=== PATIENT | female | born 1945 | race Caucasian/White ===

== ENCOUNTER 2024-05-13 22:05 | Inpatient (IN) ==
[2024-05-13] MEDS: MoRPHine SULFATE 4 MG/ML 1 ML CARP\\VIAL IV STA (22:22)
[2024-05-13] MEDS: ONDANSETRON INJ 2 MG/ML 2 ML VIAL IV STA (22:26)
--- NOTE | 2024-05-13 22:54 | Emergency Department Note ---
Impression & Plan Closed intertrochanteric fracture of right hip, Fall ED Provider Note NAME: MELVIN CAICEDO AGE: 78 SEX: F : 1945 ARRIVES VIA: Ambulance INFORMANT: Patient, ED PROVIDER(S): Yung Blandon DO CHIEF COMPLAINT: Hip pain HPI: The patient is a 78-year-old female who presented to the emergency department for an evaluation of hip pain. The patient had a fall at her home. She was seen in our facility recently and diagnosed with urinary tract infection. The patient denies having any neck pain or headache. There is no reported loss of conscious. She did receive fentanyl prior to arrival. She has a history of a stroke. ROS: See above HPI for pertinent positives & negatives. A total of 10 systems reviewed and were otherwise negative. PAST MEDICAL HISTORY: See Below PAST SURGICAL HISTORY: See Below FAMILY HISTORY: See Below SOCIAL HISTORY: See Below HOME MEDICATIONS: See Below ALLERGIES: See Below VITALS: See Below PHYSICAL EXAMINATION: GENERAL: The patient awake and alert. She appears very anxious and uncomfortable. EYES: The conjunctivae are clear. The pupils are round and reactive. EARS, NOSE, MOUTH AND THROAT: The nose is without any evidence of any deformity. NECK: The neck is nontender and supple. RESPIRATORY: Normal respiratory effort is noted there is no evidence of wheezing rhonchi or rales CARDIOVASCULAR: Regular rate and rhythm noted there no murmurs rubs or gallops normal S1 normal S2. GASTROINTESTINAL: The abdomen is soft. Abdomen is nontender. MUSCULOSKELETAL/EXTREMITIES: The right lower extremity is shortened and internally rotated. The patient resists any range of motion testing. SKIN: There is no obvious evidence of any rash. There are no petechiae, pallor or cyanosis noted. NEUROLOGIC: Patient is awake alert and oriented to person place but not time. Speech was clear. MEDICAL DECISION MAKING: The patient is a 78-year-old female who presented to the emergency department for an evaluation after a fall. The patient's history and physical exam appear to be consistent with a right hip fracture. X-rays appear to be consistent with an intertrochanteric right hip fracture. Chest x-ray showed no acute process but it was a imaging done lying flat. The patient was being treated for urinary tract infection and was seen in our facility last week. I discussed the patient's laboratory and radiographic studies with her. I discussed her condition with the on-call [facility] hospitalist. They have agreed to evaluate the patient in the emergency department for further management and disposition. Triage Nursing notes reviewed. Prior medical records reviewed Vital Signs: reviewed and remarkable for no significant abnormalities Differential diagnosis: Fracture, dislocation, contusion, intra-abdominal, pneumothorax, intrathoracic, intracranial, neurologic, compartment syndrome, rhabdomyolysis, as well as other pathologies. ER treatment provided: See below Diagnostics interpreted by me: ECG: EKG was obtained to the emergency department. My interpretation is normal sinus rhythm at 77 bpm. LVH was suggested by voltage criteria with nonspecific ST and T wave abnormalities. This was compared to a tracing from May 06, 2024. No changes were noted. Cardiac Monitoring: An order was placed for continuous cardiac monitoring. The monitor shows a rate of 75 bpm with sinus rhythm. Laboratory studies: As stated above and show below. Imaging studies: See below. Radiographic imaging was reviewed by myself Consultation(s): I discussed this case with Dr. Sarah who is on-call for the [place] [facility]. Past Med/Surg History Problem List (Updated 05/13/24 @ 23:58 by Yung Blandon DO) Fall (Acute) Closed intertrochanteric fracture of right hip (Acute) Acute UTI (Acute) Coccygeal contusion (Acute) Double vision Cerebrovascular disease, unspecified Blow-out fracture of orbital floor MARVA on CPAP History of breast cancer Adjustment disorder with depressed mood Hemiparesis affecting right side as late effect of cerebrovascular accident Age-related osteoporosis without current pathological fracture History of melanoma Expressive aphasia Chronic kidney disease, stage 3b Gastroesophageal reflux Hemorrhoids, external without complications Mixed dyslipidemia Type 2 diabetes mellitus with stage 3b chronic kidney disease, 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 Acquired hypothyroidism Type 2 diabetes mellitus Medical History History of chemotherapy Hx of radiation therapy Surgical History H/O partial mastectomy Nm breast sentinel node inj or (Left) 4 nodes positive S/P breast biopsy H/O left mastectomy Status post breast reduction Family History Mother Leukemia Thyroid disease Father Heart disease Brother Leukemia Brother Melanoma Grandfather COPD (chronic obstructive pulmonary disease) Social History Smoking Status: Never smoker Preferred Language: Polish marital status: How many Children do You have: 2 Feels Safe at Home: Yes Allergies Allergies Allergy/AdvReac Type Severity Reaction Status Date / Time No Known Allergies Allergy Verified 06/26/23 15:37 Home Meds Home Medications Medication Instructions Recorded Confirmed CPAP Machine 06/26/23 06/26/23 acetaminophen 500 mg tablet 1,000 mg PO Q8H PRN 06/26/23 06/26/23 aspirin 81 mg tablet 81 mg PO DAILY 06/26/23 06/26/23 atorvastatin 80 mg tablet 80 mg PO DAILY 06/26/23 06/26/23 blood sugar diagnostic (OneTouch 06/26/23 06/26/23 Verio test strips) bupropion HCl 150 mg 24 hr tablet, 150 mg PO QAM 06/26/23 06/26/23 extended release calcium carbonate (Antacid 215 mg PO TID 06/26/23 06/26/23 (calcium carbonate)) cholecalciferol (vitamin D3) 125 125 mcg PO DAILY 06/26/23 06/26/23 mcg (5,000 unit) capsule conjugated estrogens 0.625 mg/gram 0.625 mg vaginal DAILY 06/26/23 06/26/23 vaginal cream (Premarin) cyanocobalamin (vitamin B-12) 1,000 mcg sublingual DAILY 06/26/23 06/26/23 1,000 mcg sublingual tablet denosumab 60 mg/mL subcutaneous mg subcut 06/26/23 06/26/23 syringe (Prolia) dulaglutide 4.5 mg/0.5 mL 4.5 mg subcut 06/26/23 06/26/23 subcutaneous pen injector (Trulicity) empagliflozin 25 mg tablet 25 mg PO DAILY 06/26/23 06/26/23 ezetimibe 10 mg tablet 10 mg PO DAILY 06/26/23 06/26/23 famotidine 20 mg tablet 20 mg PO DAILY 06/26/23 06/26/23 folic acid 400 mcg tablet 0.4 mg PO DAILY 06/26/23 06/26/23 insulin aspart U-100 100 unit/mL 35 unit subcut TID 06/26/23 06/26/23 (3 mL) subcutaneous pen (Novolog FlexPen U-100 Insulin aspart) insulin needles (disposable) 30 X 06/26/23 06/26/23 3/4" levothyroxine 75 mcg capsule 75 mcg PO DAILY 06/26/23 06/26/23 lisinopril 10 mg tablet 10 mg PO DAILY 06/26/23 06/26/23 metformin 500 mg tablet 1,000 mg PO DAILY 06/26/23 06/26/23 prednisone 20 mg tablet 20 mg PO DAILY 06/26/23 06/26/23 sertraline 100 mg tablet 100 mg PO DAILY 06/26/23 06/26/23 sertraline 50 mg tablet 50 mg PO DAILY 06/26/23 06/26/23 Previous Rx's Medication Instructions Recorded cephalexin 500 mg capsule 500 mg PO BID #10 caps 05/06/24 naproxen 500 mg tablet 500 mg PO BID PRN pain #20 tabs 05/06/24 Results & Data (ED) Vital Signs Vital Signs - 24 hr 05/13/24 22:14 05/13/24 22:28 05/13/24 22:28 Temperature 36.4 C L Temperature Source Oral Pulse Rate 87 75 Pulse Rate [Apical] 75 Respiratory Rate 18 18 Respiratory Effort / Characteristics Non-Labored Spontaneous Non-Labored Spontaneous Blood Pressure 94/65 L Blood Pressure [Right Arm] 94/65 L Blood Pressure Mean 74 Blood Pressure Mean [Right Arm] 74 Blood Pressure Position Lying Blood Pressure Position [Right Arm] Lying Pulse Oximetry 96 96 Oxygen Delivery Method Room Air Room Air Sepsis Recent Fever Within 48 Hours No Sepsis New/Unexplained Change in Mental Status No Sepsis Action Taken by Nursing No Action Required 05/13/24 22:28 Temperature Temperature Source Pulse Rate 75 Pulse Rate [Apical] Respiratory Rate 18 Respiratory Effort / Characteristics Blood Pressure Blood Pressure [Right Arm] Blood Pressure Mean Blood Pressure Mean [Right Arm] Blood Pressure Position Blood Pressure Position [Right Arm] Pulse Oximetry 96 Oxygen Delivery Method Room Air Sepsis Recent Fever Within 48 Hours Sepsis New/Unexplained Change in Mental Status Sepsis Action Taken by Retirement Medications Current Medication List: was personally reviewed by me Laboratory Data Attestation: I reviewed the patient's lab results. 05/13/24 22:33 05/13/24 22:33 Lab Results 05/13/24 05/13/24 Range/Units 22:33 23:30 WBC 12.88 H (4.8-10.8) K/ul RBC 4.48 (4.20-5.40) M/uL Hgb 12.7 (12.0-16.0) g/dl Hct 39.7 (37.0-47.0) % MCV 88.6 (80.0-100.0) fL MCH 28.3 (25.0-34.0) pg MCHC 32.0 (32.0-36.0) g/dL RDW Std Deviation 51.3 H (36.4-46.3) fL RDW Coeff of Mery 15.9 H (11.5-14.5) % Plt Count 382 (130-400) K/uL MPV 10.2 (9.4-12.4) fL Immature Gran % (Auto) 0.5 % Neut % (Auto) 78.8 % Lymph % (Auto) 11.9 % Gilliam % (Auto) 6.9 % Eos % (Auto) 1.4 % Baso % (Auto) 0.5 % Neut # (Auto) 10.15 H (1.40-6.50) K/uL Lymph # (Auto) 1.53 (1.20-3.40) K/uL Gilliam # (Auto) 0.89 H (0.11-0.59) K/uL Eos # (Auto) 0.18 (0.00-0.50) K/uL Baso # (Auto) 0.06 (0.00-0.20) K/uL Immature Gran # (Auto) 0.07 (0.01-0.20) K/uL PT 10.9 (9.0-12.0) Seconds INR 1.0 (0.9-1.1) APTT 26 (21-31) Seconds PTT Ratio 1.0 Sodium 139 (136-145) mmol/L Potassium 4.1 (3.5-5.1) mmol/L Chloride 105 (98-107) mmol/L Carbon Dioxide 24 (21-32) mmol/L Anion Gap 10 (3-11) BUN 24 H (6-23) mg/dl Creatinine 1.24 H (0.6-1.2) mg/dl Est Cr Clr Drug Dosing 38.2 ml/min eGFR 44.82 BUN/Creatinine Ratio 19.4 (10-20) Glucose 217 H (70-99(Fasting)) mg/dl Calcium 9.4 (8.6-10.3) mg/dl Total Bilirubin 0.3 (0.2-1.0) mg/dl AST 30 (13-39) U/L ALT 30 (7-52) U/L Alkaline Phosphatase 60 (34-104) U/L Troponin I High Sens 7.4 (0-14) pg/ml Total Protein 6.5 (6.0-8.3) gm/dl Albumin 3.9 (3.4-5.0) gm/dl Globulin 2.6 (2.5-4.0) gm/dl Albumin/Globulin Ratio 1.5 (0.9-2) Lipase 34 (11-82) U/L Urine Color Yellow Urine Appearance Clear (Clear) Urine pH 5.5 (4.5-7.5) Ur Specific [place] 1.034 H (1.000-1.030) Urine Protein Negative (Negative) Urine Glucose (UA) 3+ H (Negative) Urine Ketones Trace H (Negative) Urine Blood Negative (Negative) Urine Nitrite Negative (Negative) Urine Bilirubin Negative (Negative) Urine Urobilinogen Negative (Negative) Ur Leukocyte Esterase Negative (Negative) Administered Medications Discontinued Medications Sodium Chloride (Nss) 500 mls @ 999 mls/hr IV .Q31M ONE Stop: 05/13/24 23:32 Last Admin: 05/13/24 23:19 Dose: 999 mls/hr Documented By: OMAR Morphine Sulfate (Morphine Sulfate 4 Mg/Ml 1 Ml Carp\\Vial) 4 mg IV NOW STA Stop: 05/13/24 22:17 Last Admin: 05/13/24 22:22 Dose: 4 mg Documented By: JENNIFER Ondansetron HCl (Ondansetron Inj 2 Mg/Ml 2 Ml Vial) 4 mg IV NOW STA Stop: 05/13/24 22:17 Last Admin: 05/13/24 22:26 Dose: 4 mg Documented By: JENNIFER Imaging Data Attestation: I personally reviewed and interpreted this imaging study as follows: My Impression: 1 view chest x-ray was obtained in the emergency department. My interpretation is no free air, no definite infiltrate, final report pending. X-ray of the right hip and pelvis as well as right femur were obtained. My interpretation is no definite pelvic fracture, there was an intertrochanteric right hip fracture noted, final report pending. Discharge Plan Visit Data Chief Complaint: Leg Injury/Pain Stated Complaint: R LEG PAIN, FALL ED Provider: Yung Blandon Discharge Problem: Closed intertrochanteric fracture of right hip, Fall Patient Disposition: Being Evaluated by Hospitalist Forms Stand Alone Forms: My [facility] Prescriptions Prescriptions: No Action atorvastatin 80 mg tablet 80 mg PO DAILY levothyroxine 75 mcg capsule 75 mcg PO DAILY ezetimibe 10 mg tablet 10 mg PO DAILY lisinopril 10 mg tablet 10 mg PO DAILY metformin 500 mg tablet 1,000 mg PO DAILY bupropion HCl 150 mg tablet extended release 24 hr 150 mg PO QAM prednisone 20 mg tablet 20 mg PO DAILY famotidine 20 mg tablet 20 mg PO DAILY cholecalciferol (vitamin D3) 125 mcg (5,000 unit) capsule 125 mcg PO DAILY (DME) OneTouch Verio test strips Strip See Rx Instructions .ROUTE Rx Instructions: As directed Antacid (calcium carbonate) 215 mg calcium (500 mg) tablet,chewable 215 mg PO TID (DME) insulin needles (disposable) 30 X 3/4 " needle See Rx Instructions .ROUTE Rx Instructions: As directed Premarin 0.625 mg/gram cream 0.625 mg vaginal DAILY Rx Instructions: off 5 days; repeat cycle Prolia 60 mg/mL syringe subcut Rx Instructions: Inject 60 mg under the skin once. Inject 1 milliliter by subcutaneous route every 6 months in the upper arm, upper thigh or abdomen folic acid 400 mcg tablet 0.4 mg PO DAILY aspirin 81 mg tablet 81 mg PO DAILY cyanocobalamin (vitamin B-12) 1,000 mcg tablet, sublingual 1,000 mcg sublingual DAILY sertraline 50 mg tablet 50 mg PO DAILY sertraline 100 mg tablet 100 mg PO DAILY Trulicity 4.5 mg/0.5 mL pen injector 4.5 mg subcut Rx Instructions: Inject 4.5 mg under the skin once a week (DME) CPAP Machine Misc See Rx Instructions .ROUTE Rx Instructions: As directed insulin aspart U-100 [Novolog FlexPen U-100 Insulin] 100 unit/mL (3 mL) insulin pen 35 unit subcut TID Rx Instructions: INJECT 35 UNITS UNDER THE SKIN WITH BREAKFAST, LUNCH AND DINNER, OR 25 UNITS WITH LOW CARB MEALS, LIKE SALAD empagliflozin 25 mg tablet 25 mg PO DAILY acetaminophen 500 mg tablet 1,000 mg PO Q8H PRN cephalexin 500 mg capsule 500 mg PO BID Qty: 10 0RF naproxen 500 mg tablet 500 mg PO BID PRN (Reason: pain) Qty: 20 0RF Referrals Referrals: Dixon Corbin DO [Primary Care Provider] - Discharge Problem: Closed intertrochanteric fracture of right hip Qualifiers: Encounter type: initial encounter Fracture alignment: displaced Qualified Code(s): S72.141A - Displaced intertrochanteric fracture of right femur, initial encounter for closed fracture Fall Qualifiers: Encounter type: initial encounter Qualified Code(s): W19.XXXA - Unspecified fall, initial encounter
[2024-05-13 23:00] LABS: Basophils # (auto) 0.06 K/uL (0.00-0.20); Basophils % (auto) 0.5 %; Eosinophils # (auto) 0.18 K/uL (0.00-0.50); Eosinophils % (auto) 1.4 %; Hematocrit (blood only) 39.7 % (37.0-47.0); Hemoglobin 12.7 g/dl (12.0-16.0); Immature Granulocytes # (auto) 0.07 K/uL (0.01-0.20); Immature Granulocytes % (auto) 0.5 %; Lymphocytes # (auto) 1.53 K/uL (1.20-3.40); Lymphocytes % (auto) 11.9 %; Mean Corpuscular Hemoglobin 28.3 pg (25.0-34.0); Mean Corpuscular Volume 88.6 fL (80.0-100.0); Mean Platelet Volume 10.2 fL (9.4-12.4); Monocytes # (auto) 0.89 K/uL (0.11-0.59); Monocytes % (auto) 6.9 %; Neutrophils # (auto) 10.15 K/uL (1.40-6.50); Neutrophils % (auto) 78.8 %; Platelet Count 382 K/uL (130-400); RDW Coefficient of Variation 15.9 % (11.5-14.5); RDW Standard Deviation 51.3 fL (36.4-46.3); Red Blood Count 4.48 M/uL (4.20-5.40); White Blood Count 12.88 K/ul (4.8-10.8)
[2024-05-13 23:04] LABS: Albumin Globulin Ratio 1.5 (0.9-2); Albumin Level 3.9 gm/dl (3.4-5.0); BUN Creatinine Ratio 19.4 (10-20); Bilirubin,Total 0.3 mg/dl (0.2-1.0); Calcium 9.4 mg/dl (8.6-10.3); Creatinine Clr Calc Pharmacy 38.2 ml/min; Globulin 2.6 gm/dl (2.5-4.0); Potassium 4.1 mmol/L (3.5-5.1); Total Protein 6.5 gm/dl (6.0-8.3)
[2024-05-13 23:10] LABS: Troponin I High Sensitivity 7.4 pg/ml (0-14)
[2024-05-13] MEDS: SODIUM CHLORIDE 0.9% 500 ML IV ONE (23:19)
[2024-05-13 23:30] LABS: Partial Thromboplastin Time 26 Seconds (21-31); Prothrombin Time 10.9 Seconds (9.0-12.0)
[2024-05-13 23:43] LABS: Appearance Urine Clear (Clear); Bilirubin Urine Negative (Negative); Blood Urine Negative (Negative); Color Urine Yellow; Glucose Urine UA 3+ (Negative); Ketones Urine Trace (Negative); Leukocyte Esterase Urine Negative (Negative); Nitrite Urine Negative (Negative); Protein Urine Negative (Negative); Specific Gravity Urine 1.034 (1.000-1.030); Urobilinogen Urine Negative (Negative); pH Urine 5.5 (4.5-7.5)
--- NOTE | 2024-05-13 23:52 | History & Physical Report ---
Date of Service May 13, 2024 Assessment & Plan (1) Hypotension: Plan: Episodic hypotension Possible autonomic neuropathy History DM 2 insulin requiring, suboptimal control as of recent hemoglobin A1c of 9.3 last January 2024 Recent outpatient TTE from March 2024 with EF of 55%, mild MR/TR Traumatic right hip fracture Underlying osteoporosis Ambulatory dysfunction hx CVA/expressive aphasia PVD status post stent hyperlipidemia, on statin Rx MARVA on CPAP left breast cancer status post chemoradiation, in remission hx melanoma as per records hypothyroidism, euthyroid as of today's TSH Medical telemetry IV albumin given chronic congestion on CXR Initiate midodrine if with persistent hypotension Hold home BP meds for now. Orthopedics consult Re: Traumatic right hip fracture N.p.o. until patient seen by orthopedics in anticipation of procedure Revised Cardiac Risk Index (RCRI): 1. High-risk type of surgery (examples include vascular and any open intraperitoneal or intrathoracic procedures). No 2. History of ischemic heart disease (history of myocardial infarction or positive exercise test, current compliant of chest pain considered to be secondary to myocardial ischemia, use of nitrate therapy, or ECG with pathological Q waves; do not count prior coronary revascularization procedure unless one of the other criteria for ischemic heart disease is present). No 3. History of heart failure. No 4. History of cerebrovascular disease. Yes 5. Diabetes mellitus requiring treatment with insulin. Yes 6. Preoperative serum creatinine >2.0. No Pt has revised cardiac index score of 0 points. (Class III Risk.) 3=10.1 % 30-day risk of , CO, or cardiac arrest. Moderate to high risk for cardiac complications if surgery recommended by Orthopedics and patient/family agreeable to attendant procedural benefits and risks.. Continue home aspirin, statin for secondary stroke prevention Basal bolus insulin adjusted for n.p.o. status, ISS BG goal 1 10-1 40 DVT prophylaxis. SCDs re: possible procedure Full code Patient requesting updates providers. Nayla Tushar Clark, contact #[phone]. Text document was generated using [employer] voice recognition software. It may contain grammatical or spelling errors. Kindly contact undersigned for clarification of any documentation item in question. History of Present Illness Chief Complaint: Fall, right hip pain Primary Care Provider: Dixon Corbin DO History obtained from patient, family, and records. Medical history significant for valvular heart disease (mild MR, TR, TTE 2023), CVA, expressive aphasia, PVD status post stent, hypertension, hyperlipidemia, MARVA on CPAP, left breast cancer status post chemoradiation, melanoma as per records, DM 2 insulin requiring, hypothyroidism, mood disorder, osteoporosis Recent ER visit last week for sacral pain following fall at home after sliding off the bed.. Patient evaluated at the ER. Coccygeal contusion on exam. Hypotension noted at the ER. Keflex Rx prescribed for possible UTI. Increased pain on ambulation since discharge from the hospital. Patient started on Lidoderm patch by PCP on follow-up visit today. Patient had a fall at her kitchen tonight, no head trauma or LOC. Patient denies chest pain, SOB. Right leg noted to be abnormal as per . Physician neighbor summoned to patient's home. EMS subsequently called. SBP 90s upon arrival at the ER. 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 Allergies Allergy/AdvReac Type Severity Reaction Status Date / Time No Known Allergies Allergy Verified 06/26/23 15:37 Home Medications Medication Instructions Recorded Confirmed Type CPAP Machine 06/26/23 05/14/24 History aspirin 81 mg tablet 81 mg PO DAILY 06/26/23 05/14/24 History atorvastatin 80 mg tablet 80 mg PO DAILY 06/26/23 05/14/24 History blood sugar diagnostic (OneTouch 06/26/23 05/14/24 History Verio test strips) bupropion HCl 150 mg 24 hr tablet, 150 mg PO QAM 06/26/23 05/14/24 History extended release cholecalciferol (vitamin D3) 125 125 mcg PO DAILY 06/26/23 05/14/24 History mcg (5,000 unit) capsule cyanocobalamin (vitamin B-12) 1,000 mcg sublingual DAILY 06/26/23 05/14/24 History 1,000 mcg sublingual tablet denosumab 60 mg/mL subcutaneous 60 mg subcut 06/26/23 06/26/23 History syringe (Prolia) empagliflozin 25 mg tablet 25 mg PO DAILY 06/26/23 05/14/24 History ezetimibe 10 mg tablet 10 mg PO DAILY 06/26/23 05/14/24 History famotidine 20 mg tablet 20 mg PO DAILY 06/26/23 05/14/24 History insulin aspart U-100 100 unit/mL 35 unit subcut TID 06/26/23 05/14/24 History (3 mL) subcutaneous pen (Novolog FlexPen U-100 Insulin aspart) insulin needles (disposable) 30 X 06/26/23 05/14/24 History 3/4" levothyroxine 75 mcg capsule 100 mcg PO DAILY 06/26/23 05/14/24 History lisinopril 10 mg tablet 10 mg PO DAILY 06/26/23 05/14/24 History sertraline 100 mg tablet 100 mg PO DAILY 06/26/23 05/14/24 History sertraline 50 mg tablet 50 mg PO DAILY 06/26/23 05/14/24 History Premarin 0.625 mg vaginal BID 05/14/24 05/14/24 History calcium carbonate 750 mg PO BID 05/14/24 05/14/24 History insulin aspart U-100 100 unit/mL subcut 05/14/24 History (3 mL) subcutaneous pen (Novolog FlexPen U-100 Insulin aspart) insulin glargine 100 unit/mL (3 56 unit subcut DAILY 05/14/24 05/14/24 History mL) subcutaneous pen (Lantus Solostar U-100 Insulin) lidocaine 4 % topical patch 1 patch topical Q12H pain 05/14/24 05/14/24 History (Aspercreme (lidocaine)) metformin 500 mg tablet,extended 500 mg PO BID 05/14/24 05/14/24 History release 24 hr tirzepatide 2.5 mg/0.5 mL 5 mg subcut WK 05/14/24 05/14/24 History subcutaneous pen injector (Mounjaro) Past Med/Surg History Problem List Hypotension Fall (Acute) Closed intertrochanteric fracture of right hip (Acute) Acute UTI (Acute) Coccygeal contusion (Acute) Double vision Cerebrovascular disease, unspecified Blow-out fracture of orbital floor MARVA on CPAP History of breast cancer Adjustment disorder with depressed mood Hemiparesis affecting right side as late effect of cerebrovascular accident Age-related osteoporosis without current pathological fracture History of melanoma Expressive aphasia Chronic kidney disease, stage 3b Gastroesophageal reflux Hemorrhoids, external without complications Mixed dyslipidemia Type 2 diabetes mellitus with stage 3b chronic kidney disease, 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 Acquired hypothyroidism Type 2 diabetes mellitus Medical History History of chemotherapy Hx of radiation therapy Surgical History H/O partial mastectomy Nm breast sentinel node inj or (Left) 4 nodes positive S/P breast biopsy H/O left mastectomy Status post breast reduction Family History Mother Leukemia Thyroid disease Father Heart disease Brother Leukemia Brother Melanoma Grandfather COPD (chronic obstructive pulmonary disease) Social History Smoking Status: Never smoker Hx Alcohol Use: Yes Alcohol type: wine Hx Substance Use: No Preferred Language: Serbian Place Change Roof Bolter Required: No Beliefs That Will Affect Care: None marital status: Current Living Situation: Spouse Current Living Situation Comment: lives at home with How many Children do You have: 2 Other Information That Helps Us Care for You: No Feels Safe at Home: Yes Safety Concerns: Feels Safe At This Time Assistive Devices: CPAP and Walker Review of Systems Review of Systems: As per HPI, all other systems reviewed and negative Physical Exam Physical Exam: GENERAL: uncomfortable, dysarthric, pleasant, no respiratory distress SKIN: Normal color, warm HEENT: [place] palpebral conjunctivae, no ptosis, dry buccal mucosa NECK : Supple, no tenderness CHEST : CTA, no tenderness HEART : RRR, no obvious murmurs ABDOMEN: Some distention, nontender EXTREMITIES : Right hip tenderness, no other conspicuous deformities noted NEUROLOGIC : Coherent, no facial asymmetry, chronic dysarthria, chronic right hemiparesis, gait and stance not assessed Results & Data Results & Data Vital Signs (Past 12 Hours) Vital Signs Temp Pulse Pulse Resp BP BP Pulse Ox 05/13/24 22:28 75 18 96 05/13/24 22:28 36.4 C L 75 18 94/65 L 96 05/13/24 22:28 75 18 94/65 L 96 05/13/24 22:14 87 O2 Del Method 05/13/24 22:28 Room Air 05/13/24 22:28 Room Air 05/13/24 22:28 Room Air 05/13/24 22:14 Laboratory Results Laboratory Results WBC 12.88 K/ul (4.8-10.8) H 05/13/24 22:33 RBC 4.48 M/uL (4.20-5.40) 05/13/24 22:33 Hgb 12.7 g/dl (12.0-16.0) 05/13/24 22:33 Hct 39.7 % (37.0-47.0) 05/13/24 22:33 MCV 88.6 fL (80.0-100.0) 05/13/24 22: MCH 28.3 pg (25.0-34.0) 05/13/24 22:33 MCHC 32.0 g/dL (32.0-36.0) 05/13/24 22:33 RDW Std Deviation 51.3 fL (36.4-46.3) H 05/13/24 22:33 RDW Coeff of Mery 15.9 % (11.5-14.5) H 05/13/24 22:33 Plt Count 382 K/uL (130-400) 05/13/24 22:33 MPV 10.2 fL (9.4-12.4) 05/13/24 22:33 Immature Gran % (Auto) 0.5 % 05/13/24 22:33 Neut % (Auto) 78.8 % 05/13/24 22:33 Lymph % (Auto) 11.9 % 05/13/24 22:33 [place] % (Auto) 6.9 % 05/13/24 22:33 Eos % (Auto) 1.4 % 05/13/24 22:33 Baso % (Auto) 0.5 % 05/13/24 22:33 Neut # (Auto) 10.15 K/uL (1.40-6.50) H 05/13/24 22:33 Lymph # (Auto) 1.53 K/uL (1.20-3.40) 05/13/24 22:33 [place] # (Auto) 0.89 K/uL (0.11-0.59) H 05/13/24 22:33 Eos # (Auto) 0.18 K/uL (0.00-0.50) 05/13/24 22:33 Baso # (Auto) 0.06 K/uL (0.00-0.20) 05/13/24 22:33 Immature Gran # (Auto) 0.07 K/uL (0.01-0.20) 05/13/24 22:33 PT 10.9 Seconds (9.0-12.0) 05/13/24 22:33 INR 1.0 (0.9-1.1) 05/13/24 22:33 APTT 26 Seconds (21-31) 05/13/24 22:33 PTT Ratio 1.0 05/13/24 22:33 Sodium 139 mmol/L (136-145) 05/13/24 22:33 Potassium 4.1 mmol/L (3.5-5.1) 05/13/24 22:33 Chloride 105 mmol/L (98-107) 05/13/24 22:33 Carbon Dioxide 24 mmol/L (21-32) 05/13/24 22:33 Anion Gap 10 (3-11) 05/13/24 22:33 BUN 24 mg/dl (6-23) H 05/13/24 22:33 Creatinine 1.24 mg/dl (0.6-1.2) H 05/13/24 22:33 Est Cr Clr Drug Dosing 38.2 ml/min 05/13/24 22:33 eGFR 44.82 05/13/24 22:33 BUN/Creatinine Ratio 19.4 (10-20) 05/13/24 22:33 Glucose 217 mg/dl (70-99(Fasting)) H 05/13/24 22:33 Calcium 9.4 mg/dl (8.6-10.3) 05/13/24 22:33 Total Bilirubin 0.3 mg/dl (0.2-1.0) 05/13/24 22:33 AST 30 U/L (13-39) 05/13/24 22:33 ALT 30 U/L (7-52) 05/13/24 22:33 Alkaline Phosphatase 60 U/L (34-104) 05/13/24 22:33 Troponin I High Sens 7.4 pg/ml (0-14) 05/13/24 22:33 Total Protein 6.5 gm/dl (6.0-8.3) 05/13/24 22:33 Albumin 3.9 gm/dl (3.4-5.0) 05/13/24 22:33 Globulin 2.6 gm/dl (2.5-4.0) 05/13/24 22:33 Albumin/Globulin Ratio 1.5 (0.9-2) 05/13/24 22:33 Lipase 34 U/L (11-82) 05/13/24 22:33 Urine Color Yellow 05/13/24 23:30 Urine Appearance Clear (Clear) 05/13/24 23:30 Urine pH 5.5 (4.5-7.5) 05/13/24 23:30 Ur Specific [place] 1.034 (1.000-1.030) H 05/13/24 23:30 Urine Protein Negative (Negative) 05/13/24 23:30 Urine Glucose (UA) 3+ (Negative) H 05/13/24 23:30 Urine Ketones Trace (Negative) H 05/13/24 23:30 Urine Blood Negative (Negative) 05/13/24 23:30 Urine Nitrite Negative (Negative) 05/13/24 23:30 Urine Bilirubin Negative (Negative) 05/13/24 23:30 Urine Urobilinogen Negative (Negative) 05/13/24 23:30 Ur Leukocyte Esterase Negative (Negative) 05/13/24 23:30 Pelvic x-ray: A nondisplaced right intertrochanteric fracture is suspected. The need for CT exam for confirmation to be determined clinically. . Right femur x-ray: Osteopenia. No acute fracture or dislocation identified. Diagnostic Findings Chest x-ray as per my interpretation elevated right hemidiaphragm, minimal congestion EKG as per my interpretation : Rate 75, NSR, LAD, LAFB, LVH, septal infarct, no ischemia
[2024-05-14] MEDS ORDERED: bisacodyL 10 MG SUPP PR PRN (00:27)
[2024-05-14] MEDS ORDERED: NALOXONE HCL 0.4 MG/1 ML VIAL/CARP IV PRN (00:27)
[2024-05-14] MEDS ORDERED: PROMETHAZINE 6.25 MG/50.25 ML BAG IV PRN (00:29)
[2024-05-14 00:51] LABS: Base Excess VBG -0.5 mEq/L; HCO3 VBG 24 mmol/L; Oxygen Saturation VBG 91.8 %; PCO2 VBG 39 mmHg (38-50); PO2 VBG 61 mmHg
--- NOTE | 2024-05-14 01:18 | XRay Report ---
Exam(s): XR CXR 1 VIEW EXAM: XR Chest, 1 View CLINICAL HISTORY: Reason for exam: Chest pain, nonspecific. TECHNIQUE: Frontal view of the chest. COMPARISON: X-ray chest: 05/06/2024. FINDINGS: Lungs: Redemonstrates a skinfold laterally over the upper/mid left chest. No consolidation. Pleural space: No pleural effusion. No definite pneumothorax. Elevated right hemidiaphragm with reduced right lung volume. Heart: No cardiomegaly. Mildly prominent upper lobes pulmonary vessels. Mediastinum: Normal mediastinal contour. Prominent left hilar soft tissue density. Bones/joints: Osteopenia. No acute fracture. Other findings: Left subclavian endovascular stent. Upper abdominal metallic small surgical clips.. IMPRESSION: Likely mild chronic pulmonary vascular congestion. Advise clinical correlation. No consolidation. Again noted a prominent left hilar soft tissue opacity. CT chest would be contributory. . Electronically signed by: Evelyn Bello MD, AAKASHR 05/14/24 01:17 AM
--- NOTE | 2024-05-14 01:21 | XRay Report ---
Exam(s): XR RIGHT FEMUR, 2 views EXAM: XR Right Femur, 2 Views CLINICAL HISTORY: Reason for exam: femur. TECHNIQUE: Frontal and lateral views of the right femur. COMPARISON: None. FINDINGS: Bones/joints: Diffuse osseous demineralization. No acute fracture. No dislocation. Soft tissues: Unremarkable. Extensive calcified arterial atherosclerosis. IMPRESSION: Osteopenia. No acute fracture or dislocation identified. . Electronically signed by: Evelyn Bello MD, AAKASHR 05/14/24 01:20 AM
--- NOTE | 2024-05-14 01:26 | XRay Report ---
Exam(s): XR PELVIS, 1-2 views EXAM: XR Pelvis, 1 or 2 Views CLINICAL HISTORY: Reason for exam: fall. TECHNIQUE: Frontal view of the pelvis. COMPARISON: None. FINDINGS: Bones/joints: Osteopenia. Likely a nondisplaced intertrochanteric fracture. No dislocation. Left hip hemiarthroplasty. Mild right hip osteoarthrosis. Soft tissues: Unremarkable. Diffuse arterial calcified atherosclerosis. Other findings: Ventral abdominal wall hernia repair multiple surgical clips. IMPRESSION: Osteopenia. A nondisplaced right intertrochanteric fracture is suspected. The need for CT exam for confirmation to be determined clinically. . Electronically signed by: Evelyn Bello MD, AAKASHR 05/14/24 01:25 AM
[2024-05-14] MEDS ORDERED: DEXTROSE 50% 50 ML SYRINGE IV PRN ×3 (01:27→18:25)
[2024-05-14] MEDS ORDERED: GLUCOSE 40% GEL 15 GM TUBE PO PRN ×3 (01:27→18:25)
[2024-05-14] MEDS ORDERED: GLUCAGON FOR INJ 1 MG VIAL SQ PRN ×3 (01:27→18:25)
[2024-05-14] MEDS ORDERED: CARBOHYDRATES FOR HYPOGLYCEMIA PO PRN ×3 (01:27→18:25)
[2024-05-14] MEDS ORDERED: GLUCOSE 10 TAB/TUBE PO PRN ×3 (01:27→18:25)
[2024-05-14] MEDS: SODIUM CHLORIDE 0.9% 1,000 ML IV ONE (01:30)
[2024-05-14] MEDS: ACETAMINOPHEN 1,000 MG/100 ML VIAL IV STA (01:48)
[2024-05-14] MEDS: INSULIN ASPART PER UNIT CHARGE SC SCH ×2 (01:57→05:40)
[2024-05-14] MEDS: LANTUS PER UNIT CHARGE SQ SCH (01:57)
[2024-05-14] MEDS: ALBUMIN 25% 25 GM/100 ML VIAL IV ONE (02:04)
[2024-05-14 05:02] LABS: BUN Creatinine Ratio 18.2 (10-20); Calcium 8.8 mg/dl (8.6-10.3); Creatinine Clr Calc Pharmacy 38.2 ml/min
[2024-05-14] MEDS: ALBUMIN 25% 25 GM/100 ML VIAL IV SCH (05:02)
[2024-05-14] MEDS: oxyCODONE HCL IR 5 MG TAB (IMMEDIATE RELEASE) PO PRN ×2 (05:13→12:20)
[2024-05-14 05:17] LABS: Thyroid Stimulating Hormone 3.643 uIu/ml (0.300-4.500)
[2024-05-14] MEDS: LEVOTHYROXINE SODIUM 100 MCG TABLET PO SCH (05:42)
[2024-05-14] MEDS ORDERED: Nursing to Pharmacy Communication SCH (06:00)
[2024-05-14] MEDS: oxyCODONE HCL IR 5 MG TAB (IMMEDIATE RELEASE) PO STA (06:44)
--- NOTE | 2024-05-14 08:02 | Anesthesiology Consultation ---
Date of Service May 14, 2024 Assessment & Plan Chart Review Chart Review: Acceptable Risk for Surgery and Patient NOT seen in Pre Admission Testing History Surgery Operation Date: 05/14/24 15:40 Proposed Procedures p Right Long Troch Nail - Zac Cooley MD Height/Weight Height: 5 ft 5 in Weight: 69.7 kg Allergies Allergy/AdvReac Type Severity Reaction Status Date / Time No Known Allergies Allergy Verified 06/26/23 15:37 Medications Home Medications Medication Instructions Recorded Confirmed Last Taken CPAP Machine 06/26/23 05/14/24 Unknown aspirin 81 mg tablet 81 mg PO DAILY 06/26/23 05/14/24 05/13/24 atorvastatin 80 mg tablet 80 mg PO DAILY 06/26/23 05/14/24 05/13/24 blood sugar diagnostic (OneTouch 06/26/23 05/14/24 Unknown Verio test strips) bupropion HCl 150 mg 24 hr tablet, 150 mg PO QAM 06/26/23 05/14/24 05/13/24 extended release cholecalciferol (vitamin D3) 125 125 mcg PO DAILY 06/26/23 05/14/24 05/13/24 mcg (5,000 unit) capsule cyanocobalamin (vitamin B-12) 1,000 mcg sublingual DAILY 06/26/23 05/14/24 05/13/24 1,000 mcg sublingual tablet denosumab 60 mg/mL subcutaneous 60 mg subcut 06/26/23 06/26/23 Unknown syringe (Prolia) empagliflozin 25 mg tablet 25 mg PO DAILY 06/26/23 05/14/24 05/13/24 ezetimibe 10 mg tablet 10 mg PO DAILY 06/26/23 05/14/24 05/13/24 famotidine 20 mg tablet 20 mg PO DAILY 06/26/23 05/14/24 05/13/24 insulin aspart U-100 100 unit/mL 35 unit subcut TID 06/26/23 05/14/24 05/13/24 (3 mL) subcutaneous pen (Novolog FlexPen U-100 Insulin aspart) insulin needles (disposable) 30 X 06/26/23 05/14/24 Unknown 3/4" levothyroxine 75 mcg capsule 100 mcg PO DAILY 06/26/23 05/14/24 05/13/24 lisinopril 10 mg tablet 10 mg PO DAILY 06/26/23 05/14/24 05/13/24 sertraline 100 mg tablet 100 mg PO DAILY 06/26/23 05/14/24 05/13/24 sertraline 50 mg tablet 50 mg PO DAILY 06/26/23 05/14/24 05/13/24 Premarin 0.625 mg vaginal BID 05/14/24 05/14/24 Unknown calcium carbonate 750 mg PO BID 05/14/24 05/14/24 05/13/24 insulin aspart U-100 100 unit/mL subcut 05/14/24 05/13/24 (3 mL) subcutaneous pen (Novolog FlexPen U-100 Insulin aspart) insulin glargine 100 unit/mL (3 56 unit subcut DAILY 05/14/24 05/14/24 05/13/24 mL) subcutaneous pen (Lantus Solostar U-100 Insulin) lidocaine 4 % topical patch 1 patch topical Q12H pain 05/14/24 05/14/24 05/13/24 (Aspercreme (lidocaine)) metformin 500 mg tablet,extended 500 mg PO BID 05/14/24 05/14/24 05/13/24 release 24 hr tirzepatide 2.5 mg/0.5 mL 5 mg subcut WK 05/14/24 05/14/24 Unknown subcutaneous pen injector (Arianne) Active Medications Generic Name Dose Route Start Last Admin Trade Name Claudioq PRN Reason Stop Dose Admin Albumin Human 25 gm in 100 mls @ 50 mls/hr 05/14/24 04:45 05/14/24 07:02 Albumin 25% IV 05/17/24 04:44 Infused Q8H LOIDA Infusion Insulin Aspart 0 units 05/14/24 06:00 05/14/24 05:40 Insulin Aspart Per Unit Charge SC 06/13/24 05:59 1 units Q6 LOIDA Administration Insulin Glargine 5 units 05/14/24 01:20 05/14/24 01:57 Lantus Per Unit Charge SQ 06/13/24 01:19 5 units HS LOIDA Administration Levothyroxine Sodium 100 mcg 05/14/24 06:30 05/14/24 05:42 Levothyroxine Sodium 100 Mcg Tablet PO 06/13/24 06:29 100 mcg DAILYBB LOIDA Administration Past Medical History Medical History History of chemotherapy Hx of radiation therapy Past Family History Family History Mother Leukemia Thyroid disease Father Heart disease Brother Leukemia Brother Melanoma Grandfather COPD (chronic obstructive pulmonary disease) Past Surgical History Surgical History H/O partial mastectomy Nm breast sentinel node inj or (Left) 4 nodes positive S/P breast biopsy H/O left mastectomy Status post breast reduction Social History Smoking Status: Never smoker Hx Alcohol Use: Yes Alcohol type: wine Alcohol Intake Frequency Comment: pt states has not drank in months. Hx Substance Use: No substance use type: does not use Physical Exam Vital Signs Last Vital Signs Temp 37.2 C 05/14/24 04:25 Pulse 77 05/14/24 07:00 Resp 20 05/14/24 04:25 BP 91/54 L 05/14/24 04:25 Pulse Ox 96 05/14/24 04:25 O2 Del Method CPAP 05/14/24 04:25 O2 Flow Rate 2 05/14/24 02:50 Testing Laboratory Results 05/13/24 22:33 05/14/24 04:37 PT 10.9 Seconds (9.0-12.0) 05/13/24 22:33 INR 1.0 (0.9-1.1) 05/13/24 22:33 APTT 26 Seconds (21-31) 05/13/24 22:33 Urine Color Yellow 05/13/24 23:30 Urine Appearance Clear (Clear) 05/13/24 23:30 Urine pH 5.5 (4.5-7.5) 05/13/24 23:30 Ur Specific [place] 1.034 (1.000-1.030) H 05/13/24 23:30 Urine Protein Negative (Negative) 05/13/24 23:30 Urine Glucose (UA) 3+ (Negative) H 05/13/24 23:30 Urine Ketones Trace (Negative) H 05/13/24 23:30 Urine Nitrite Negative (Negative) 05/13/24 23:30 Ur Leukocyte Esterase Negative (Negative) 05/13/24 23:30 Blood Type A Positive 05/14/24 00:41 Antibody Screen NEGATIVE 05/14/24 00:41 05/14/24 05/14/24 05:01 01:27 POC Glucose 147 H 166 H
[2024-05-14] MEDS: CYANOCOBALAMIN (B-12) 500 MCG TABLET PO SCH (09:06)
[2024-05-14] MEDS: ATORVASTATIN 40 MG TAB PO SCH (09:06)
[2024-05-14] MEDS: CHOLECALCIFEROL 125 MCG (5,000 UNITS) TAB PO SCH (09:07)
[2024-05-14] MEDS: FAMOTIDINE 20 MG TAB PO SCH (09:07)
[2024-05-14] MEDS: CALCIUM CARBONATE 500 MG CHEWABLE TAB PO SCH (09:07)
[2024-05-14] MEDS: SERTRALINE HCL 50 MG TABLET PO SCH (09:07)
[2024-05-14] MEDS: ASPIRIN 81 MG ECTAB PO SCH (09:07)
[2024-05-14] MEDS: buPROPion XL 150 MG TABCR PO SCH (09:07)
[2024-05-14] MEDS: EZETIMIBE 10 MG TAB PO SCH (09:08)
[2024-05-14] MEDS: SERTRALINE HCL 100 MG TABLET PO SCH (09:08)
[2024-05-14] MEDS: LIDOCAINE 5% 1 PATCH TD SCH (09:08)
--- NOTE | 2024-05-14 09:40 | Hospitalist Progress Note ---
Date of Service May 14, 2024 Assessment & Plan (1) Hypotension: Plan Pt is a 78yoF with PMhx significant for valvular heart disease (mild MR, TR, TTE 2023), CVA, expressive aphasia, PVD status post stent, hypertension, hyperlipidemia, MARVA on CPAP, left breast cancer status post chemoradiation, melanoma as per records, DM 2 insulin requiring, hypothyroidism, mood disorder, osteoporosis presenting with concern for trauma after a fall at home. Right Intertrochanteric Fracture Traumatic right hip fracture Underlying osteoporosis Ambulatory dysfunction XRAY of the pelvis noting Right Intertrochanteric Fracture Orthopedics consult, anticipating repair on Pain control as needed PT/OT postop Hypotension Periodic before sugery Per her BP is chronically on the low end Continue home midodrine Continue other home meds as ordered DVT prophylaxis: SCDs re: possible procedure preop Full code Dispo: per PT/OT recs once medically stable, anticipating discharge to rehab Admission and Anticipated Discharge Date Admission Date: May 13, 2024 Subjective Pt was seen pre-op in the AM with her at bedside. Hx of stroke, AAOx2. States having occasional pain, right leg hurts Review of Systems Review of Systems: All systems reviewed & are unremarkable except as noted in Subjective Physical Exam Physical Exam: General: Alert Psych: Appropriate mood and affect Neuro: unable to move right leg HEENT: NC/AT CV: RRR Resp: Breath sounds clear bilaterally, no increased effort of breathing Abdomen: Soft, nontender Extremities:unable to move right leg Results & Data Results & Data Vital Signs (Past 12 Hours) Vital Signs Temp Pulse Pulse Pulse Resp BP BP 05/14/24 08:18 36.8 C 72 20 94/63 L 05/14/24 07:00 77 05/14/24 04:25 37.2 C 82 20 91/54 L 05/14/24 02:50 84 17 05/14/24 01:27 81 05/14/24 01:10 05/14/24 01:10 36.4 C L 76 18 122/75 05/14/24 00:06 83 20 92/58 L 05/13/24 22:28 75 18 05/13/24 22:28 36.4 C L 75 18 94/65 L 05/13/24 22:28 75 18 94/65 L 05/13/24 22:14 87 Pulse Ox O2 Del Method O2 Flow Rate 05/14/24 08:18 98 Room Air 05/14/24 07:00 05/14/24 04:25 96 CPAP 05/14/24 02:50 92 2 05/14/24 01:27 05/14/24 01:10 CPAP 05/14/24 01:10 94 Room Air 05/14/24 00:06 93 Room Air 05/13/24 22:28 96 Room Air 05/13/24 22:28 96 Room Air 05/13/24 22:28 96 Room Air 05/13/24 22:14 Diagnostic Findings Chest X-Ray 05/13/24 22:16 Exam(s): XR CXR 1 VIEW EXAM: XR Chest, 1 View CLINICAL HISTORY: Reason for exam: Chest pain, nonspecific. TECHNIQUE: Frontal view of the chest. COMPARISON: X-ray chest: 05/06/2024. FINDINGS: Lungs: Redemonstrates a skinfold laterally over the upper/mid left chest. No consolidation. Pleural space: No pleural effusion. No definite pneumothorax. Elevated right hemidiaphragm with reduced right lung volume. Heart: No cardiomegaly. Mildly prominent upper lobes pulmonary vessels. Mediastinum: Normal mediastinal contour. Prominent left hilar soft tissue density. Bones/joints: Osteopenia. No acute fracture. Other findings: Left subclavian endovascular stent. Upper abdominal metallic small surgical clips.. IMPRESSION: Likely mild chronic pulmonary vascular congestion. Advise clinical correlation. No consolidation. Again noted a prominent left hilar soft tissue opacity. CT chest would be contributory. . Electronically signed by: Evelyn Bello MD, FLETCHER 05/14/24 01:17 AM Femur X-Ray 05/13/24 22:16 Exam(s): XR RIGHT FEMUR, 2 views EXAM: XR Right Femur, 2 Views CLINICAL HISTORY: Reason for exam: femur. TECHNIQUE: Frontal and lateral views of the right femur. COMPARISON: None. FINDINGS: Bones/joints: Diffuse osseous demineralization. No acute fracture. No dislocation. Soft tissues: Unremarkable. Extensive calcified arterial atherosclerosis. IMPRESSION: Osteopenia. No acute fracture or dislocation identified. . Electronically signed by: Evelyn Bello MD, FLETCHER 05/14/24 01:20 AM Pelvis X-Ray 05/13/24 22:16 Exam(s): XR PELVIS, 1-2 views EXAM: XR Pelvis, 1 or 2 Views CLINICAL HISTORY: Reason for exam: fall. TECHNIQUE: Frontal view of the pelvis. COMPARISON: None. FINDINGS: Bones/joints: Osteopenia. Likely a nondisplaced intertrochanteric fracture. No dislocation. Left hip hemiarthroplasty. Mild right hip osteoarthrosis. Soft tissues: Unremarkable. Diffuse arterial calcified atherosclerosis. Other findings: Ventral abdominal wall hernia repair multiple surgical clips. IMPRESSION: Osteopenia. A nondisplaced right intertrochanteric fracture is suspected. The need for CT exam for confirmation to be determined clinically. . Electronically signed by: Evelyn Bello MD, DABR 05/14/24 01:25 AM
[2024-05-14 09:43] LABS: Basophils # (auto) 0.06 K/uL (0.00-0.20); Basophils % (auto) 0.5 %; Eosinophils # (auto) 0.15 K/uL (0.00-0.50); Eosinophils % (auto) 1.1 %; Hematocrit (blood only) 34.6 % (37.0-47.0); Hemoglobin 10.9 g/dl (12.0-16.0); Immature Granulocytes # (auto) 0.04 K/uL (0.01-0.20); Immature Granulocytes % (auto) 0.3 %; Lymphocytes # (auto) 1.68 K/uL (1.20-3.40); Lymphocytes % (auto) 12.7 %; Mean Corpuscular Hemoglobin 28.2 pg (25.0-34.0); Mean Corpuscular Hgb Conc 31.5 g/dL (32.0-36.0); Mean Corpuscular Volume 89.4 fL (80.0-100.0); Mean Platelet Volume 10.5 fL (9.4-12.4); Monocytes # (auto) 1.08 K/uL (0.11-0.59); Monocytes % (auto) 8.2 %; Neutrophils # (auto) 10.19 K/uL (1.40-6.50); Neutrophils % (auto) 77.2 %; Platelet Count 339 K/uL (130-400); RDW Standard Deviation 51.7 fL (36.4-46.3); Red Blood Count 3.87 M/uL (4.20-5.40)
[2024-05-14] MEDS: MoRPHine SULFATE 2 MG/ML CARP IV PRN (10:02)
[2024-05-14] MEDS: MIDODRINE HCL 2.5 MG TAB PO SCH (10:40)
--- NOTE | 2024-05-14 10:50 | Orthopedic Consultation ---
Date of Service May 14, 2024 Assessment & Plan (1) Closed intertrochanteric fracture of right hip: Her and her were educated on this injury and treatment for it. We recommend trochanteric nailing and they would like to proceed with that. She is npo. Plan for surgery this afternoon. History of Present Illness Reason for Consultation: . Requesting Physician: . Attending Physician: Ita Schroeder MD .Summer is a 78 year old patient that fell last night at home and injured her right hip. She was admitted to the hospitalist service and is npo. She denies any hip pain prior to the fall. She does have a h/o left hip fx taken care of in [place] where they used to live. She has a h/o cva and hemiparesis on the right side, uses assistive devices for ambulation. Allergies Allergy/AdvReac Type Severity Reaction Status Date / Time No Known Allergies Allergy Verified 06/26/23 15:37 Home Medications Medication Instructions Recorded Confirmed Type CPAP Machine 06/26/23 05/14/24 History aspirin 81 mg tablet 81 mg PO DAILY 06/26/23 05/14/24 History atorvastatin 80 mg tablet 80 mg PO DAILY 06/26/23 05/14/24 History blood sugar diagnostic (OneTouch 06/26/23 05/14/24 History Verio test strips) bupropion HCl 150 mg 24 hr tablet, 150 mg PO QAM 06/26/23 05/14/24 History extended release cholecalciferol (vitamin D3) 125 125 mcg PO DAILY 06/26/23 05/14/24 History mcg (5,000 unit) capsule cyanocobalamin (vitamin B-12) 1,000 mcg sublingual DAILY 06/26/23 05/14/24 History 1,000 mcg sublingual tablet denosumab 60 mg/mL subcutaneous 60 mg subcut 06/26/23 06/26/23 History syringe (Prolia) empagliflozin 25 mg tablet 25 mg PO DAILY 06/26/23 05/14/24 History ezetimibe 10 mg tablet 10 mg PO DAILY 06/26/23 05/14/24 History famotidine 20 mg tablet 20 mg PO DAILY 06/26/23 05/14/24 History insulin aspart U-100 100 unit/mL 35 unit subcut TID 06/26/23 05/14/24 History (3 mL) subcutaneous pen (Novolog FlexPen U-100 Insulin aspart) insulin needles (disposable) 30 X 06/26/23 05/14/24 History 3/4" levothyroxine 75 mcg capsule 100 mcg PO DAILY 06/26/23 05/14/24 History lisinopril 10 mg tablet 10 mg PO DAILY 06/26/23 05/14/24 History sertraline 100 mg tablet 100 mg PO DAILY 06/26/23 05/14/24 History sertraline 50 mg tablet 50 mg PO DAILY 06/26/23 05/14/24 History Premarin 0.625 mg vaginal BID 05/14/24 05/14/24 History calcium carbonate 750 mg PO BID 05/14/24 05/14/24 History insulin aspart U-100 100 unit/mL subcut 05/14/24 History (3 mL) subcutaneous pen (Novolog FlexPen U-100 Insulin aspart) insulin glargine 100 unit/mL (3 56 unit subcut DAILY 05/14/24 05/14/24 History mL) subcutaneous pen (Lantus Solostar U-100 Insulin) lidocaine 4 % topical patch 1 patch topical Q12H pain 05/14/24 05/14/24 History (Aspercreme (lidocaine)) metformin 500 mg tablet,extended 500 mg PO BID 05/14/24 05/14/24 History release 24 hr tirzepatide 2.5 mg/0.5 mL 5 mg subcut WK 05/14/24 05/14/24 History subcutaneous pen injector (Mounjaro) Past Med/Surg History Problem List Hypotension Fall (Acute) Closed intertrochanteric fracture of right hip (Acute) Acute UTI (Acute) Coccygeal contusion (Acute) Double vision Cerebrovascular disease, unspecified Blow-out fracture of orbital floor MARVA on CPAP History of breast cancer Adjustment disorder with depressed mood Hemiparesis affecting right side as late effect of cerebrovascular accident Age-related osteoporosis without current pathological fracture History of melanoma Expressive aphasia Chronic kidney disease, stage 3b Gastroesophageal reflux Hemorrhoids, external without complications Mixed dyslipidemia Type 2 diabetes mellitus with stage 3b chronic kidney disease, 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 Acquired hypothyroidism Type 2 diabetes mellitus Medical History History of chemotherapy Hx of radiation therapy Surgical History H/O partial mastectomy Nm breast sentinel node inj or (Left) 4 nodes positive S/P breast biopsy H/O left mastectomy Status post breast reduction Family History Mother Leukemia Thyroid disease Father Heart disease Brother Leukemia Brother Melanoma Grandfather COPD (chronic obstructive pulmonary disease) Social History Smoking Status: Never smoker Hx Alcohol Use: Yes Alcohol type: wine Hx Substance Use: No Preferred Language: Yoruba Financial Services Technician Required: No Beliefs That Will Affect Care: None marital status: Current Living Situation: Spouse Current Living Situation Comment: lives at home with How many Children do You have: 2 Other Information That Helps Us Care for You: No Feels Safe at Home: Yes Safety Concerns: Feels Safe At This Time Assistive Devices: CPAP and Walker Review of Systems All systems reviewed & are unremarkable except as noted in HPI & below. Physical Exam . alert, NAD Right leg shortened and externally rotated. Able to DF/PF, NVI. Results & Data Results & Data Laboratory Results . Diagnostic Findings .xrays show a right intertroch hip fx PG Care Time/CCT Total # of Minutes Spent Total Time Spent with Patient: Total time spent is greater than 50% in coordination of care (as documented) at patient's floor/unit and/or counseling patient: Coding Level of Care Code 96843 IN/OBS CONSULT LVL 4,60M Diagnoses Closed intertrochanteric fracture of right hip S72.141A Encounter type: initial encounter Fracture alignment: displaced (1) Closed intertrochanteric fracture of right hip Encounter type: initial encounter Fracture alignment: displaced Qualified Code(s): S72.141A - Displaced intertrochanteric fracture of right femur, initial encounter for closed fracture
--- NOTE | 2024-05-14 14:01 | Electrocardiogram Report ---
Test Reason : Blood Pressure : */* mmHG Vent. Rate : 77 BPM Atrial Rate : 77 BPM P-R Int : 162 ms QRS Dur : 102 ms QT Int : 422 ms P-R-T Axes : 63 -5 73 degrees QTcB Int : 477 ms Normal sinus rhythm Minimal voltage criteria for LVH, may be normal variant Septal infarct (cited on or before 06-May-2024) Abnormal ECG When compared with ECG of 06-May-2024 12:24, No significant change was found Confirmed by Yung Bedoya ([id number]) on 05/14/2024 2:00:50 PM Referred By: REFERRED SELF Confirmed By: Yung Bedoya
--- NOTE | 2024-05-14 15:05 | History & Physical Bridge Note ---
Date of Service May 14, 2024 History & Physical Bridge Note I have examined the patient, reviewed the History & Physical and in the interval since the performance of the History & Physical I have noted the following changes of clinical significance: no changes noted
[2024-05-14] MEDS ORDERED: PROPOFOL IV EMULSION 10 MG/ML 20 ML VIAL IV ONE (16:13)
[2024-05-14] MEDS ORDERED: fentaNYL citrate PF 100 MCG/2 ML VIAL ONE (16:13)
[2024-05-14] MEDS ORDERED: DEXAMETHASONE SOD INJ 4 MG/ML VIAL ONE (16:13)
[2024-05-14] MEDS ORDERED: ONDANSETRON INJ 2 MG/ML 2 ML VIAL ONE (16:13)
[2024-05-14] MEDS ORDERED: LIDOCAINE 2% 2 ML VIAL/AMP(20MG/ML) INFIL ONE (16:13)
[2024-05-14] MEDS ORDERED: GLYCOPYRROLATE 0.2 MG/ML VIAL ONE (16:16)
[2024-05-14] MEDS ORDERED: ePHEDrine sulfate 50 MG/ML AMP IV PRN (16:19)
[2024-05-14] MEDS ORDERED: ATROPINE SULFATE 0.1 MG/ML 10ML SYR IV PRN (16:19)
[2024-05-14] MEDS ORDERED: HYDROmorphone INJ 1 MG/ML SYRINGE IV PRN (16:19)
[2024-05-14] MEDS ORDERED: ONDANSETRON INJ 2 MG/ML 2 ML VIAL IV PRN (16:19)
[2024-05-14] MEDS ORDERED: fentaNYL citrate PF 100 MCG/2 ML VIAL IV PRN (16:19)
[2024-05-14] MEDS: TRANEXAMIC ACID / 0.7% NACL 1,000 MG/100 ML BAG IV ONE (16:40)
[2024-05-14] MEDS: ceFAZolin 2000MG 2,000 MG/15 ML SYR IV ONE (16:40)
[2024-05-14] MEDS ORDERED: VASOPRESSIN 20 UNIT/ML VIAL ONE (16:43)
[2024-05-14] MEDS ORDERED: PHENYLEPHRINE HCL 25 MG/250 ML NSS IV ONE (16:52)
[2024-05-14] MEDS: BUPIVACAINE/EPINEPHRINE 0.5% MPF 1:200,000 30 ML VIAL ONE (17:59)
--- NOTE | 2024-05-14 18:33 | Operative Report ---
PG Post Operative Report Pre & Post Diagnosis Operation Date: 05/14/24 15:40 Pre-Op diagnosis: Right intertrochanteric hip fracture. Postop diagnosis: Right intertrochanteric hip fracture I identified the patient and participated in the time-out.: Yes Procedure Operation Date: 05/14/24 15:40 Intramedullary/cephalomedullary nailing of a right intertrochanteric hip fracture Surgeon Zac Cooley MD Ring Conductor None Estimated Blood Loss 100 Findings Consistent with Post-Op Diagnosis Specimens None Anesthesia Type General Complications none Disposition Accompanied Patient To Recovery: No Indications Patient is a 78-year-old female who sustained a mechanical fall yesterday. She was brought to emergency room x-rays of the right intertrochanteric hip fracture. She was admitted by the medicine service, medically optimized indicated for surgical treatment. Description of Procedure Operative implants consist of: 1. Synthes right 360 mm x 11 mm long trochanteric nail. 2. 90 mm helical blade. 3. 46 mm x 5.0 mm distal interlocking screw. The patient was taken the op room, identified, placed on the operating table in the supine position. All contact areas were appropriately padded. IV antibiotics fibra anesthesia team. A general anesthetic was implemented. The patient then placed on the fracture table. X-ray was brought in. I pulled some longitudinal traction on the right leg and internally rotated the foot. X-ray showed an anatomic reduction. The right hip and leg was then scrubbed with Hibiclens, prepped with ChloraPrep and draped in usual sterile fashion. A curvilinear incision was made just proximal to the tip of the trochanter on both the AP and lateral planes. Sharp dissection was got through subcutaneous tissue directly down to the gluteal fascia. Gluteal fascia was incised longitudinally in line with skin incision. A guide wire was then placed just lateral to the tip of the trochanter in line with the AP canal on both AP and lateral films. This advanced down the IM canal. This was verified fluoroscopically. This was overreamed with a large reamer. This guidewire was removed and exchanged for a ball-tipped guidewire which was advanced down the canal. We measured for nail length and a 360 mm nail was selected. I overreamed the guidewire with sequential reaming up to 12.5. A Synthes right 11 mm x 360 mm helical blade was then tapped down the canal and into position. The lateral aiming arm was attached. A stab incision was made. The lateral aiming arm was advanced the lateral aspect of the femur. A guidewire was placed and advanced to the central aspect of the femoral head neck in both AP and lateral planes. This was then measured and a 90 mm helical blade was selected. The cortical drill was used to breach the cortex and the triple reamer was set at 90 and then overreamed the guidewire. A 90 mm helical blade was selected and tapped into position. The proximal setscrew was tightened. The lateral aiming arm was removed. Some final x-rays were obtained. Attention was then toward distal interlocking. Using a perfect kake technique a distal interlocking screw was placed in a dynamic hole in the dynamic position. Stab incision was made. The drill was used to drill a hole and a 46 mm x 5.0 mm distal interlocking screw was placed. Safyral x-rays were obtained. Attention then drawn toward closing. All wounds were irrigated extensively. I did inject locally with 30 cc of half percent Marcaine with epinephrine. The gluteal fascia then closed with #1 Vicryl suture in a [id number] fashion for the subcutaneous tissues of all wounds then closed with 2-0 Vicryl suture in a buried interrupted fashion. The skin was closed with skin william. A sterile dressing composed Xeroform, 4 fours, ABD pad and foam tape was applied. The patient was then taken off the fracture table. She was brought out of general anesthesia and transferred to the recovery room in stable condition. The patient tolerated procedure well and there were no complications. I attest to the content of the Intraoperative Record and any orders documented therein. Any exceptions are noted below.
[2024-05-14] MEDS: ACETAMINOPHEN 1000 MG/100 ML IV IV ONE (18:40)
[2024-05-14] MEDS ORDERED: PHENYLEPHRINE 100MCG/ML 5ML SYR IV PRN (18:53)
[2024-05-14] MEDS: PHENYLEPHRINE/NSS 25 MG/250 ML BAG IV PRN (18:55)
[2024-05-14] MEDS ORDERED: ALBUMIN HUMAN 5% 12.5 GM/250 ML VIAL IV ONE (18:58)
[2024-05-14] MEDS: ALBUMIN 5% 250 ML IV ONE (19:13)
--- NOTE | 2024-05-14 19:59 | Communication Note ---
Date of Service: May 14, 2024 Patient noted to be hypotensive postop. SBP 60s to 90s. Hypotension after phenylephrine held. No response to extra midodrine Rx Patient asymptomatic as per RN. AP Postop hypotension ICU transfer
[2024-05-14] MEDS: MIDODRINE HCL 2.5 MG TAB PO STA (20:16)
[2024-05-14] MEDS: ALBUMIN 25% 12.5 GM/50 ML VIAL IV ONE (20:46)
[2024-05-14 21:26] LABS: Hematocrit (blood only) 32.2 % (37.0-47.0)
[2024-05-14] MEDS ORDERED: PREMARIN 0.625 MG PV SCH (21:30)
[2024-05-14] MEDS ORDERED: NON-FORMULARY MEDICATION (Insulin Aspart U-100 [Novolog Flexpen U-100 Insulin] 100 unit/mL SQ SCH (21:30)
[2024-05-14] MEDS: PHENYLEPHRINE/NSS 25 MG/250 ML BAG IV SCH (21:32)
--- NOTE | 2024-05-14 21:35 | Anesthesiology Progress Note ---
Date of Service May 14, 2024 Anesthesia Post Procedure Vital Signs Vital Signs: Temp Pulse Pulse Pulse Resp BP BP 05/14/24 21:20 37.2 C 79 15 94/54 L 05/14/24 21:10 78 18 82/60 L 05/14/24 21:00 82 16 76/52 L 05/14/24 20:50 89 20 69/52 L 05/14/24 20:40 90 18 84/53 L 05/14/24 20:30 86 16 83/58 L 05/14/24 20:20 83 22 90/54 L 05/14/24 20:10 85 16 89/51 L 05/14/24 20:00 85 17 83/61 L 05/14/24 19:50 82 18 89/66 L 05/14/24 19:40 85 18 85/58 L 05/14/24 19:30 84 14 99/76 L 05/14/24 19:20 36.6 C 83 18 76/39 L 05/14/24 19:10 73 19 103/60 05/14/24 19:00 76 23 94/57 L 05/14/24 18:50 80 24 77/51 L 05/14/24 18:40 84 22 96/47 L 05/14/24 18:30 84 24 91/60 L 05/14/24 18:23 36.7 C 98 H 25 H 99/49 L 05/14/24 15:51 37.0 C 80 20 99/63 L 05/14/24 15:00 37.0 C 85 18 93/60 L 05/14/24 13:15 36.8 C 85 18 107/68 05/14/24 11:41 37.1 C 88 18 96/60 L 05/14/24 10:00 18 102/65 05/14/24 08:18 36.8 C 72 20 94/63 L 05/14/24 08:00 81 05/14/24 08:00 05/14/24 07:00 77 05/14/24 04:25 37.2 C 82 20 91/54 L 05/14/24 02:50 84 17 05/14/24 01:27 81 05/14/24 01:10 05/14/24 01:10 36.4 C L 76 18 122/75 05/14/24 00:06 83 20 92/58 L 05/13/24 22:28 75 18 05/13/24 22:28 36.4 C L 75 18 94/65 L 05/13/24 22:28 75 18 94/65 L 05/13/24 22:14 87 Pulse Ox O2 Del Method O2 Flow Rate 05/14/24 21:20 94 Nasal Cannula 2 05/14/24 21:10 94 Nasal Cannula 2 05/14/24 21:00 93 Nasal Cannula 2 05/14/24 20:50 93 Nasal Cannula 2 05/14/24 20:40 93 Nasal Cannula 2 05/14/24 20:30 93 Nasal Cannula 2 05/14/24 20:20 94 Nasal Cannula 2 05/14/24 20:10 92 Nasal Cannula 2 05/14/24 20:00 94 Nasal Cannula 2 05/14/24 19:50 95 Nasal Cannula 2 05/14/24 19:40 92 Nasal Cannula 2 05/14/24 19:30 92 Nasal Cannula 2 05/14/24 19:20 92 Nasal Cannula 2 05/14/24 19:10 94 Oxymask 2 05/14/24 19:00 95 Oxymask 2 05/14/24 18:50 94 Oxymask 4 05/14/24 18:40 92 Oxymask 4 05/14/24 18:30 96 Oxymask 6 05/14/24 18:23 96 Oxymask 6 05/14/24 15:51 91 Room Air 05/14/24 15:00 92 Room Air 05/14/24 13:15 92 Room Air 05/14/24 11:41 91 Room Air 05/14/24 10:00 96 Room Air 05/14/24 08:18 98 Room Air 05/14/24 08:00 05/14/24 08:00 Room Air 05/14/24 07:00 05/14/24 04:25 96 CPAP 05/14/24 02:50 92 2 05/14/24 01:27 05/14/24 01:10 CPAP 05/14/24 01:10 94 Room Air 05/14/24 00:06 93 Room Air 05/13/24 22:28 96 Room Air 05/13/24 22:28 96 Room Air 05/13/24 22:28 96 Room Air 05/13/24 22:14 Pain Intensity Right Leg: Pain Intensity: 5 Transfer of Care Handoff Completed per policy Notes Mental Status: alert / awake / arousable and participated in evaluation Patient Amnestic to Procedure: Yes Nausea / Vomiting: adequately controlled Pain: adequately controlled Airway Patency, RR, SpO2: stable & adequate BP & HR: see Notes below Hydration State: stable & adequate Anesthetic Complications: no major complications apparent and Pt Satisfied with anesthetic care Notes: During this admission, patient was noted to be hypotensive. She was started on scheduled albumin and also TID midodrine. Decision was made to have patient undergo GA rather than SAB in order to mitigate risk of severe hypotension often seen with a spinal block. Patient's BP was maintained during procedure with IV phenylephrine infusion and several doses of IV vasopressin. In recovery, patient received her scheduled PO dose of midodrine and an additional 250ml of 5% albumin. Phenylephrine ggt was unable to be weaned fully without patient's SBP dropping into low 80's/high 70's. Hospitalist service made aware and ultimately decision was made to transfer patient to ICU with phenylephrine infusion. ICU consular officer provider was given report. All questions answered and patient and her agree to the plan.
[2024-05-14 21:36] LABS: BUN Creatinine Ratio 16.5 (10-20); Calcium 8.8 mg/dl (8.6-10.3); Creatinine Clr Calc Pharmacy 42.4 ml/min; Potassium 4.3 mmol/L (3.5-5.1)
[2024-05-14] MEDS: ceFAZolin 2,000 MG/15 ML IV PUSH IV ONE (21:37)
[2024-05-14] MEDS: TRANEXAMIC ACID / 0.7% NACL 1000MG/100ML BAG IV ONE (21:37)
--- NOTE | 2024-05-14 22:29 | Critical Care Consultation ---
Date of Consultation May 14, 2024 Assessment & Plan (1) Hypotension: Reason Critically Ill: 78-year-old female with extensive past medical history presents to the ICU following right intertrochanteric hip fracture repair, in which she was found to be hypotensive requiring vasopressor support with phe nylephrine drip. Neuro - History of CVApatient with residual expressive aphasia and hemiplegia following previous CVA. Defer to surgery when to start ASA. Depressioncontinue home med regimen Cardiac - Hypotensionpatient noted to be mildly hypotensive on arrival to the emergency department prior to surgery. Previously started on albumin and midodrine. Remained hypotensive postop and required phenylephrine drip and transferred to the ICU - Unsure of etiology at this time patient appears to have decreased vascular resistance which may be chronic? - Unsure if underlying heart failure may be playing a role. Will repeat TTE study -Follow-up random cortisol - Continue with albumin and gentle fluid resuscitation - Uptitrate midodrine. Wean phenylephrine as tolerated. Maintain MAP greater than 65 Respiratory - No history of pulmonary disease. Currently maintaining oxygen saturations on 2 L nasal cannula. Continuous monitoring pulse ox GI - Advance diet as tolerated RENAL/LYTES - CKDcreatinine at baseline. No electrolyte abnormalities or significant acid- base imbalance. Monitor routine BMPs and replete electrolytes as indicated - Foleystrict I's and O's ENDO - DM type IIhold Jardiance for now. Continue with Lantus/sliding scale. Currently euglycemic. ICU hyperglycemic protocol Hypothyroidismcontinue Synthroid Ortho Intertrochanteric hip fracturestatus post intramedullary/cephalomedullary nailing of right intertrochanteric hip fracture this afternoon. Management per surgical team HEME - H&H stable with hemoglobin of 10 consistent with previous baseline. EBL 100 per surgical note. Will monitor for now but no signs of bleeding at this time. Follow-up a.m. CBC ID - No indication for infectious process at this time. Trend fever curve. Continue with empiric Ancef LINES/IV ACCESS - Peripheral IVs DVT PROPHYLAXIS - SCDs, hold anticoagulation following surgical procedure I have personally spent 43 minutes of critical care time in the direct management of this patient. This is a life/limb threatening event. This includes time spent evaluating patient, direct bedside care, chart review, placing orders, interpretation of diagnostic studies, discussion with consultants, patient, and family members, as well as other required patient management activities. This time is exclusive of all separately billable procedures, and teaching time and separate from and in addition to any other critical care service time. Thank you for allowing us to participate in the care of this patient. Please refer to my attending physician's documentation for any further recommendations. 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 She initially presented to the emergency department on 05/13 after fall in her kitchen in which her noticed her leg to be abnormal. She was found to have Right intertrochanteric hip fracture. Patient was scheduled for the OR and underwent intramedullary/cephalomedullary nailing of right intertrochanteric hip fracture earlier this afternoon. In recovery patient was noted to be hypotensive requiring phenylephrine drip. Patient has had low blood pressures since admission and was previously started on 2.5 mg 3 times daily of midodrine with scheduled albumin transfusions. In PACU she was given additional dose of midodrine but could not wean from phenylephrine drip and she has not been transferred to ICU for further management. On arrival to the ICU the patient complains of pain at her coccyx from a fall a week ago unrelated in which she sustained bruising to her sacral area without fracture. Interestingly patient denies any pain to the surgical site of her hip fracture. She denies recent illness or fevers, cough or congestion, shortness of breath, headaches, dizziness, syncopal events, chest pain or palpitations, abdominal pain, nausea vomiting or diarrhea, swelling in hands or feet. Patient to remain in ICU for further management at this time considering vasopressor support with phenylephrine drip. Allergies Allergy/AdvReac Type Severity Reaction Status Date / Time No Known Allergies Allergy Verified 06/26/23 15:37 Home Medications Medication Instructions Recorded Confirmed Type CPAP Machine 06/26/23 05/14/24 History aspirin 81 mg tablet 81 mg PO DAILY 06/26/23 05/14/24 History atorvastatin 80 mg tablet 80 mg PO DAILY 06/26/23 05/14/24 History blood sugar diagnostic (OneTouch 06/26/23 05/14/24 History Verio test strips) bupropion HCl 150 mg 24 hr tablet, 150 mg PO QAM 06/26/23 05/14/24 History extended release cholecalciferol (vitamin D3) 125 125 mcg PO DAILY 06/26/23 05/14/24 History mcg (5,000 unit) capsule cyanocobalamin (vitamin B-12) 1,000 mcg sublingual DAILY 06/26/23 05/14/24 History 1,000 mcg sublingual tablet denosumab 60 mg/mL subcutaneous 60 mg subcut 06/26/23 06/26/23 History syringe (Prolia) empagliflozin 25 mg tablet 25 mg PO DAILY 06/26/23 05/14/24 History ezetimibe 10 mg tablet 10 mg PO DAILY 06/26/23 05/14/24 History famotidine 20 mg tablet 20 mg PO DAILY 06/26/23 05/14/24 History insulin aspart U-100 100 unit/mL 35 unit subcut TID 06/26/23 05/14/24 History (3 mL) subcutaneous pen (Novolog FlexPen U-100 Insulin aspart) insulin needles (disposable) 30 X 06/26/23 05/14/24 History 3/4" levothyroxine 75 mcg capsule 100 mcg PO DAILY 06/26/23 05/14/24 History lisinopril 10 mg tablet 10 mg PO DAILY 06/26/23 05/14/24 History sertraline 100 mg tablet 100 mg PO DAILY 06/26/23 05/14/24 History sertraline 50 mg tablet 50 mg PO DAILY 06/26/23 05/14/24 History Premarin 0.625 mg vaginal BID 05/14/24 05/14/24 History calcium carbonate 750 mg PO BID 05/14/24 05/14/24 History insulin aspart U-100 100 unit/mL subcut 05/14/24 History (3 mL) subcutaneous pen (Novolog FlexPen U-100 Insulin aspart) insulin glargine 100 unit/mL (3 56 unit subcut DAILY 05/14/24 05/14/24 History mL) subcutaneous pen (Lantus Solostar U-100 Insulin) lidocaine 4 % topical patch 1 patch topical Q12H pain 05/14/24 05/14/24 History (Aspercreme (lidocaine)) metformin 500 mg tablet,extended 500 mg PO BID 05/14/24 05/14/24 History release 24 hr tirzepatide 2.5 mg/0.5 mL 5 mg subcut WK 05/14/24 05/14/24 History subcutaneous pen injector (Mounjaro) Patient History Medical History History of chemotherapy Hx of radiation therapy Surgical History H/O partial mastectomy Nm breast sentinel node inj or (Left) 4 nodes positive S/P breast biopsy H/O left mastectomy Status post breast reduction Family History Mother Leukemia Thyroid disease Father Heart disease Brother Leukemia Brother Melanoma Grandfather COPD (chronic obstructive pulmonary disease) Social History Smoking Status: Never smoker Hx Alcohol Use: Yes Alcohol type: wine Hx Substance Use: No Preferred Language: Polish 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 Beliefs That Will Affect Care: None marital status: Current Living Situation: Spouse Current Living Situation Comment: lives at home with How many Children do You have: 2 Other Information That Helps Us Care for You: No Feels Safe at Home: Yes Safety Concerns: Feels Safe At This Time Assistive Devices: CPAP and Walker Review of Systems Review of Systems: All systems reviewed & are unremarkable except as noted in HPI & below Physical Exam Constitutional: + frail appearing; no acute distress Eyes: PERRL, conjunctivae normal, anicteric sclerae ENMT: external ear and nose normal, oropharynx normal Neck: trachea midline, no thyromegaly Respiratory: normal respiratory effort, lungs clear to auscultation Cardiovascular: RRR, no murmur, no edema Heart Sounds: normal S1 and normal S2; no murmur Extremities: no edema Gastrointestinal (Abdomen): normal bowel sounds, soft, nontender, no hepatosplenomegaly Musculoskeletal: no cyanosis or clubbing, extremities motor strength 5/5 Skin: no rashes, warm and dry Neurologic: Speech / Cognition: + abnormal speech and + expressive aphasia Psychiatric: A+Ox3, euthymic affect Results & Data Results & Data Vital Signs (Past 12 Hours) Vital Signs Temp Pulse Pulse Resp BP Pulse Ox O2 Del Method 05/14/24 21:20 37.2 C 79 15 94/54 L 94 Nasal Cannula 05/14/24 21:10 78 18 82/60 L 94 Nasal Cannula 05/14/24 21:00 82 16 76/52 L 93 Nasal Cannula 05/14/24 20:50 89 20 69/52 L 93 Nasal Cannula 05/14/24 20:40 90 18 84/53 L 93 Nasal Cannula 05/14/24 20:30 86 16 83/58 L 93 Nasal Cannula 05/14/24 20:20 83 22 90/54 L 94 Nasal Cannula 05/14/24 20:10 85 16 89/51 L 92 Nasal Cannula 05/14/24 20:00 85 17 83/61 L 94 Nasal Cannula 05/14/24 19:50 82 18 89/66 L 95 Nasal Cannula 05/14/24 19:40 85 18 85/58 L 92 Nasal Cannula 05/14/24 19:30 84 14 99/76 L 92 Nasal Cannula 05/14/24 19:20 36.6 C 83 18 76/39 L 92 Nasal Cannula 05/14/24 19:10 73 19 103/60 94 Oxymask 05/14/24 19:00 76 23 94/57 L 95 Oxymask 05/14/24 18:50 80 24 77/51 L 94 Oxymask 05/14/24 18:40 84 22 96/47 L 92 Oxymask 05/14/24 18:30 84 24 91/60 L 96 Oxymask 05/14/24 18:23 36.7 C 98 H 25 H 99/49 L 96 Oxymask 05/14/24 15:51 37.0 C 80 20 99/63 L 91 Room Air 05/14/24 15:00 37.0 C 85 18 93/60 L 92 Room Air 05/14/24 13:15 36.8 C 85 18 107/68 92 Room Air 05/14/24 11:41 37.1 C 88 18 96/60 L 91 Room Air O2 Flow Rate 05/14/24 21:20 2 05/14/24 21:10 2 05/14/24 21:00 2 05/14/24 20:50 2 05/14/24 20:40 2 05/14/24 20:30 2 05/14/24 20:20 2 05/14/24 20:10 2 05/14/24 20:00 2 05/14/24 19:50 2 05/14/24 19:40 2 05/14/24 19:30 2 05/14/24 19:20 2 05/14/24 19:10 2 05/14/24 19:00 2 05/14/24 18:50 4 05/14/24 18:40 4 05/14/24 18:30 6 05/14/24 18:23 6 05/14/24 15:51 05/14/24 15:00 05/14/24 13:15 05/14/24 11:41 Coding Level of Care Code 97111 CRITICAL CARE 1ST 30-74M Diagnoses Hypotension I95.9 Closed intertrochanteric fracture of right hip S72.141A Encounter type: initial encounter Fracture alignment: displaced MARVA on CPAP G47.33 Expressive aphasia R47.01 Acquired hypothyroidism E03.9 Type 2 diabetes mellitus E11.9 Mixed dyslipidemia E78.2 Chronic kidney disease, stage 3b N18.32 Hemiparesis affecting right side as late effect of cerebrovascular accident I69.351 Adjustment disorder with depressed mood F43.21 (2) Closed intertrochanteric fracture of right hip Encounter type: initial encounter Fracture alignment: displaced Qualified Code(s): S72.141A - Displaced intertrochanteric fracture of right femur, initial encounter for closed fracture
[2024-05-14 23:13] LABS: Appearance Urine Clear (Clear); Bacteria Urine Automated None Seen (None Seen); Bilirubin Urine Negative (Negative); Blood Urine Trace (Negative); Cast Urine Automated 0-2 /lpf (0-2); Color Urine Yellow; Epithelial Cell Urine Auto 0-2 /hpf (0-2); Glucose Urine UA 3+ (Negative); Ketones Urine 2+ (Negative); Leukocyte Esterase Urine Negative (Negative); Nitrite Urine Negative (Negative); Protein Urine Trace (Negative); RBC Urine Automated 0-2 /hpf (0-2); Specific Gravity Urine 1.024 (1.000-1.030); Urobilinogen Urine Negative (Negative); WBC Urine Automated 0-5 /hpf (0-5)
[2024-05-15] MEDS: ceFAZolin 1000MG 1,000 MG/7.5 ML SYR IV SCH (00:16)
[2024-05-15] MEDS: ACETAMINOPHEN 325 MG TAB PO PRN (00:18)
--- OUTSIDE RECORDS SUMMARY | 2024-05-15 03:29 | External Medical Summary | Summary of Care ---
Author Name Unknown Organization [facility] Address [address] [place] [address] Phone [phone] Care Team Providers Care Ultimate Hoops Referee Name Role Phone Dixon Corbin DO Primary Care Provider Reason for Visit * Reason Onset Date Comments Information 05/06/2024 Encounter Details Date Type Department Care Team (Late st Contact Info) Description 05/06/2024 Telephone Family Practice [address] [facility], [place] [address] [place] [address] Dixon Corbin DO [address] [place] [address] Information (/) Allergies No known active allergiesdocumented as of this encounter (statuses as of 05/07/2024) Medications Premarin 0.625 MG/GM Vaginal Cream (Estrogens, Conjugated)Indica tions:Encounter for long-term (current) use of medications Administer into the vagina at bedtime. As directed. 90 g 5 021 Active Additional Information Patient taking differently:Vaginal HS,Only when gets a rash, Reported on 06/07/2023 Folic Acid 400 MCG Oral TabletIndications :general health Take 1 Tablet by mouth in the morning. Active Prolia 60 MG/ML Subcutaneous Solution Prefilled Syringe (Denosumab)Indica tions:bone density Inject 60 mg under the skin once. Inject 1 milliliter by subcutaneous route every 6 months in the upper arm, upper thigh or abdomen. Active OneTouch Verio In Vitro Strip (Glucose Blood) Use to test blood sugar daily 100 Strip 11 3 3:44 PM EST Active OneTouch Delica Plus [id number] USE DIRECTED - TEST DAILY 100 Each 11 3 3:44 PM EST Active CPAP every night at bedtime. Active Acetaminophen 500 MG Oral Tablet (Tylenol)Indicati ons:Strain of lumbar region, initial encounter Take 2 Tablets by mouth every 8 hours as needed for Pain, Moderate. Active Additional Information Patient taking differently:1,000 mg Oral Q8H PRN, Pain, Moderate,Currently taking regular strength., Reported on 05/06/2024 Lantus SoloStar 100 UNIT/ML Subcutaneous Solution Pen-injectorIndic ations:Type 2 diabetes mellitus with hemoglobin A1c goal of less than 8.0% (HCC) Inject 56 Units under the skin daily. 60 mL 3 4 4:35 PM EDT Active Additional Information Patient taking differently: 60 UnitsSubcutaneous Daily(Non-Specified),Per MTDM, Reported on 05/06/2024 Dexcom G7 Sensor Use as directed. Active NovoLOG FlexPen 100 UNIT/ML Subcutaneous Solution Pen-injectorIndic ations:Type 2 diabetes mellitus with hemoglobin A1c goal of less than 8.0% (HCC) INJECT 35 UNITS UNDER THE SKIN WITH BREAKFAST AND DINNER, 30 UNITS WITH LUNCH, AND 25 UNITS WITH LOW CARB MEALS, LIKE SALAD - max 100 units per day 105 mL 2 4 8:51 AM EDT Active Additional Information Patient taking differently: INJECT 38-39 UNITS UNDER THE SKIN WITH BREAKFAST AND DINNER, 38-39 UNITS WITH LUNCH, AND 25 UNITS WITH LOW CARB MEALS, LIKE SALAD - max 100 units per day, Reported on 05/06/2024 Glucagon Emergency 1 MG Injection KitIndications:Ty pe 2 diabetes mellitus with hemoglobin A1c goal of less than 8.0% (HCC) Inject as directed for blood sugars less than 55 or non-response 1 Kit 1 4 1:39 PM EDT 024 Active Aspirin 81 MG Oral Tablet Delayed ReleaseIndication s:heart Take 1 Tablet by mouth every evening. 250 Tablet 11 Active Atorvastatin Calcium 80 MG Oral Tablet (Lipitor)Indicati ons:Mixed hyperlipidemia Take 1 Tablet by mouth every evening. 28 Tablet 11 Active buPROPion HCl ER (XL) 150 MG Oral Tablet Extended Release 24 Hour (Wellbutrin XL)Indications:Ad justment disorder with depressed mood Take 1 Tablet by mouth in the morning. 28 Tablet 11 4 12:53 PM EDT Active Tums Smoothies 750 MG Oral Tablet Chewable (calcium CARBonate)Indicat ions:heartburn Chew 2 tablets by mouth in the morning and 1 tablet in the evening 60 Tablet 11 4 10:48 AM EST Active Empagliflozin 25 MG Oral Tablet (Jardiance)Indica tions:Type 2 diabetes mellitus with hemoglobin A1c goal of less than 8.0% (HCC),Encounter for long-term (current) use of medications Take 1 Tablet by mouth in the morning. 28 Tablet 11 4 12:53 PM EDT Active Ezetimibe 10 MG Oral Tablet (Zetia)Indication s:Encounter for long-term (current) use of medications Take 1 Tablet by mouth every evening. 28 Tablet 11 Active Levothyroxine Sodium 100 MCG Oral Tablet (Levoxyl)Indicati ons:Encounter for long-term (current) use of medications,Acqui red hypothyroidism Take 1 Tablet by mouth daily first thing in the morning. 28 Tablet 11 4 10:48 AM EST Active Lisinopril 10 MG Oral Tablet (Prinivil) Take 1 Tablet by mouth in the morning. 28 Tablet 3 4 12:53 PM EDT Active metFORMIN HCl ER 500 MG Oral Tablet Extended Release 24 Hour (Glucophage XR)Indications:Ty pe 2 diabetes mellitus with hemoglobin A1c goal of less than 8.0% (HCC) Take 2 tablets by mouth every morning and 1 tablet every evening 84 Tablet 11 4 12:53 PM EDT 024 Active Sertraline HCl 100 MG Oral Tablet (Zoloft)Indicatio ns:Adjustment disorder with depressed mood Take 1 Tablet by mouth in the morning. With sertraline 50 mg tablet.. 28 Tablet 11 4 12:53 PM EDT Active Sertraline HCl 50 MG Oral Tablet (Zoloft)Indicatio ns:Adjustment disorder with depressed mood Take 1 Tablet by mouth in the morning. With sertraline 100 mg tablet. 28 Tablet 11 4 12:53 PM EDT Active Cholecalciferol 125 MCG (5000 UT) Oral Capsule (D-3-5)Indication s:general health Take 1 Capsule by mouth every evening. 100 Capsule 11 4 12:53 PM EDT Active Super B Complex/Vitamin C Oral Tablet Take 1 Tablet by mouth in the morning. 100 Tablet 11 Active Pen [place] 32G X 4 MMIndications:Typ e 2 diabetes mellitus with hemoglobin A1c goal of less than 8.0% ([facility]) Use to take insulin 5 times daily E11.9 500 Each 3 4 1:29 PM EDT Active Tirzepatide 2.5 MG/0.5ML Subcutaneous Solution Auto-injector (Mounjaro) inject 2.5mg under the skin once a week 6 mL 2 4 7:31 AM EST Active documented as of this encounter (statuses as of 05/07/2024) Active Problems Problem Noted Date Diagnosed Date HTN, goal below 140/90 06/28/2023 Expressive aphasia 03/08/2023 Type 2 diabetes mellitus wit h stage 3b chronic kidney disease, with long-term current use of insulin 08/15/2022 Mixed dyslipidemia 08/15/2022 Hemorrhoids, external without complications 04/12 Chronic kidney disease, stage 3b 11/22/2021 Overview: Per CKD protocol Hemiparesis affecting right side as late effect of stroke 10/26/2021 Diabetes mellitus with nephropathy 10/26/2021 Cerebrovascular disease, unspecified 10/26/2021 Gastroesophageal reflux disease 08/03/2021 Type 2 diabetes mellitus wit h hemoglobin A1c goal of less than 8.0% 01/25/2021 Acquired hypothyroidism 01/25/2021 Adjustment disorder with depressed mood 08/16/20 21 History of melanoma 01/25/2021 Age-related osteoporosis wit dasha current pathological fracture 01/25/2021 MARVA on CPAP 01/25/2021 History of breast cancer 06/12/1989 Overview (11/05/2021): Reoccurance in 1995 documented as of this encounter (statuses as of 05/07/2024) Resolved Problems Problem Noted Date Diagnosed Date Resolved Date Type 2 diabetes mellitus wit h diabetic chronic kidney disease 02/07/2022 08/31/2022 Chronic kidney disease, stage 3a 06/21/2021 11/25/2021 Overview: Per CKD protocol Renal function test abnormal 01/25/2021 11/05/2021 documented as of this encounter (statuses as of 05/07/2024) Immunizations Name Administration Dates Next Due COVID-19 mRNA, LNP-s, No Pre serve, 2-Dose Series (Moderna) 04/05/2021,08/19/2020,07/22/2020 COVID-19, MRNA-LNP, PF, 30 M CG/0.3 mL, 12 YRS AND ABOVE, IM (PFIZER-Comirnat) 03/06/2024,06/22/2023 COVID-19, mRNA, LNP-s, PF, B ooster, 100mcg/0.5mg (Moderna) 11/30/2021 Covid-19, Mrna, Lnp-s, Pf, B ivalent, 50 Mcg, IM, 12 yrs and above (Moderna) 03/15/2022 Pneumococcal Conjugate Vacc, 13 Valent (Prevnar) 11/30/2015 Pneumococcal Polysaccharide PPV23 (Pneumovax) 12/20/2016 Seasonal Influenza Virus Vac cine, Unspecified Formulation 03/10/2020 Seasonal Influenza, High Dos e, Trivalent, PF, IM (Fluzone HD) 02/15/2024 Seasonal Influenza, Quadriva lent Hd (Fluzone Hd) 02/14/2023,03/09/2022,04/28/2021 TDAP (age 10 and older)(Boostrix) 02/07/2022 Zoster Vaccine Recombinant (Shingrix) 04/27/2019 ,03/08/2018 documented as of this encounter Social History Tobacco Use Types Packs/Day Years Used Date Smoking Tobacco: Never Passive Smoke Exposure: Past Smokeless Tobacco: Never Alcohol Use Standard Drinks/Week Comments Yes 0 (1 standard drink = 0.6 oz pur e alcohol) ocassionally PHQ-2 Answer Date Recorded PHQ Adult Total Score 9 08/21/2023 Hunger Vital Sign Answer Date Recorded Within the past 12 months, y ou worried that your food would run out before you got the money to buy more. Never true 06/28/19 24 Within the past 12 months, t he food you bought just didn't last and you didn't have money to get more. Never true 06/28/2023 Childcare Answer Date Recorded Do you feel overwhelmed with taking care of a child, family member or friend? No 06/28/2023 Does your family need help f inding childcare? (Household - for ages 0-17 years) Not on file 06/28/2023 Clothing Answer Date Recorded Have you been unable to get clothing when it was really needed? No 06/28/2023 Is your family able to get c lothes or diapers when needed? (Household - for ages 0-17 years) Not on file 06/28/2023 Personal Safety Answer Date Recorded Do you feel unsafe or have concerns for your saf ety? No 06/28/2023 Do you have concerns for you r family's safety? (Household - for ages 0-17 years) Not on file 06/28/2023 Utilities Answer Date Recorded Do you have trouble paying y our heating, water, or electric bill? No 06/28/2023 Is your family able to pay t he heat, water, or electric bill? (Household - for ages 0-17 years) Not on file 06/28/2023 Does your family have access to good internet? (Household - for ages 0-17 years) Not on file 06/28/2023 Employment Status Answer Date Recorded Are you unemployed or without regular income? No 06/28/2023 Does the household have a re gular source of income? (Household - for ages 0-17 years) Not on file 06/28/2023 Social Connections Answer Date Recorded How often do you feel lonely or isolated from th ose around you? Never 06/28/2023 Financial Resource Strain Answer Date R ecorded Do you have any trouble payi ng for your medications, or do you think you might in the future? No 06/28/2023 Does your family have troubl e paying for medicine? (Household - for ages 0-17 years) Not on file 06/28/2023 Transportation Needs Answer Date Record ed READ ONLY Do you have troubl e getting a ride to medical visits or work? Never True 06/28/2023 Does your family have a hard time getting a ride to doctors visits? (Household - for ages 0-17 years) Not on file 06/28/2023 Has lack of transportation k ept you from medical appointments, meetings, work, or from getting things needed for daily living? Check all that apply. (Adult - for ages 18 years and over) Not on file 06/28/2023 Do you (or your family) have trouble finding or paying for a ride (transportation)? (Household - for ages 0-17 years) Not on file 06/28/2023 Housing Stability Answer Date Recorded Do you currently live in a s helter or have no steady place to sleep at night? No 06/28/2023 READ ONLY Do you think you a re at risk of becoming homeless? No 06/28/2023 Does your family worry about paying for your home or becoming homeless? (Household - for ages 0-17 years) Not on file 0 06/28/2023 Are you homeless or worried that you might be in the future? (Adult - for ages 18 years and over) Not on file Are you (or your family) romero eless or worried that you might be in the future? (Household - for ages 0-17 years) Not on file Food Insecurity Answer Date Recorded Do you need food for this week? No 06/28/2023 Are you able to get enough f ood for your family? (Household - for ages 0-17 years) Not on file 06/28/2023 Does your family need food t his week? (Household - for ages 0-17 years) Not on file 06/28/2023 Do you always have enough fo od for your family? (Household - for ages 0-17 years) Not on file 06/28/2023 Comments No Sex and Gender Information Value Date Recorded Sex Assigned at Female 12/23/2021 11:43 AM EDT Legal Sex Female 6:31 AM EST Gender Identity Female 12/23/2021 11:43 AM EDT Sexual Orientation Straight 12/23/2021 11 :43 AM EDT documented as of this encounter Miscellaneous Notes * Telephone Encounter - Dixon Corbin DO - 05/06/2024 9:33 AM EST Noted * Telephone Encounter - Bette Ayala LPN - 05/06/2024 9:24 AM EST Please add to schedule today, patient is coming in. Add upon arrival. Fall was early Monday Am * Telephone Encounter - Bette Ayala LPN - 05/06/2024 9:13 AM EST Called again, no answer. Unable to leave a message. * Telephone Encounter - Bette Ayala LPN - 05/06/2024 8:28 AM EST Received message from glass toughening operator regarding a fall. Unable to reach patient.. Need to discuss urgently documented in this encounter Plan of Treatment Upcoming Encounters Date Type Department Care Team (Late st Contact Info) Description 05/20/2024 1:00 PM EST Office Visit Family Practice [facility] [place] [address] [place] [address] [facility] [address] 05/29/2024 2:20 PM EST Office Visit [facility] [address] [place] [address] Reynaldo Alberts MD [address] [place] [address] 05/30/2024 11:00 AM EST Office Visit Family Practice 65 [facility] [address] [place] [address] College, Pharmacist [address] [place] [address] 05/30/2024 11:20 AM EST Office Visit Family Practice 65 [facility] [address] [place] [phone] Dixon Corbin DO 293 [place] [address] 06/25/2024 1:30 PM EST Nutrition Services Nutrition Services [address] [place] [address] Kassy Hernandez RDN [address] [place] [address], [place] [address] 08/26/2024 1:00 PM EDT Nurse Only Family Practice 65 [facility] [address] [place] [phone] Bette Kern, KIMBERLY [address] [place] [phone] 09/24/2024 11:40 AM EDT Office Visit Rheumatology [place] [id number] [place] [address] Wesley Coates MD [facility] [place] [address] 10/08/2024 1:30 PM EDT Office Visit Sleep Disorders Ctr [facility] [address] [facility] [place] [phone] Toshia Castanon CRNP [address] [facility] [place] [address] 11/18/2024 2:00 PM EDT Office Visit Dermatology [facility] [address] [place] [address] [facility] [place] [address] River Foley MD 200 [facility] [place] [address] 12/27/2024 10:30 AM EDT Office Visit Cardiology, [facility] [address] [place] [address] Дмитрий Finley MD [address] [place] [address] Health Maintenance Due Date Last Done Comments GFR 07/03/2024 01/01/2024, 09/10, 09/18/2023, Additional history exists HbA1c 07/27/2024 01/25/2024, 09/10, 06/07/2023, Additional history exists Adult Wellness Visit 08/20/2024 08/21/2023 Depression Screening 08/20/2024 08/21/2023 Diabetic Foot Exam 08/20/2024 08/21/2023, 0 08/15/2022, 10/26/2021 CKD PHOS USE SMARTSET [id number] 09/17/2024 04/0 01/2024, 08/09/2022, 11/09/2021 Diabetic Eye Exam 09/20/2024 09/21/2023, , 06/29/2023, Additional history exists Albumin/Creatinine Ratio 01/24/2025 024, 02/14/2023, 04/20/2022, Additional history exists CKD HGB USE SMARTSET 17185 02/27/202502/27, 01/25/2024, 01/25/2024, Additional history exists TSH 03/25/2025 03/25/2024, 12/11, 09/26/2023, Additional history exists DXA Scan 09/18/2025 09/19/2023, 02/2022, 07/21/2021 DTap/Tdap Vaccines (2 - Td or Tdap) 02/08/2032 02/07/2022 Pneumococcal Vaccine: 65+ Years Completed 12/20/2016, 11/30/2015 Zoster Vaccines Completed 04/27/2019, 03/08/2018 VITAMIN D LEVEL ONCE IN A LIFETIME-USE SMARTSET# [id number] Completed 09/26/2023, 09/18/2023, 08/09/2022, Additional history exists Influenza Vaccine (FLU shot) Completed 02/15/2024, 02/14/2023, 03/09/2022, Additional history exists COVID-19 Vaccine Discontinued 03/06/2024, 04/2024, 03/15/2022, Additional history exists HPV (Gardasil) Vaccine Aged Out No lo nger eligible based on patient's age to complete this topic Hepatitis B Vaccine Aged Out No longe r eligible based on patient's age to complete this topic MENINGOCOCCAL (MENACTRA/MENVEO) Aged Out No longer eligible based on patient's age to complete this topic documented as of this encounter Medical Devices Not on filedocumented as of this encounter Care Teams Ultimate Hoops Referee Relationship Specialty Start Date End Date Dixon Corbin DO [address] [place] [address] PCP - General Internal Medicine 12/21/23 documented as of this encounter
--- OUTSIDE RECORDS SUMMARY | 2024-05-15 03:29 | External Medical Summary | Summary of Care ---
Author Name Unknown Organization [facility] Address [address] [place] [address] Phone [phone] Care Team Providers Care Trimming Inspector Name Role Phone Dixon Corbin DO Primary Care Provider [phone] Reason for Visit * Reason Onset Date Comments Pre Cert/Prior Auth 05/02/2024 Mounjaro 2.5 Encounter Details Date Type Department Care Team (Late st Contact Info) Description 05/02/2024 Telephone Family Practice [facility], [place] [address] [place] [address] Dixon Corbin DO [address] [place] [address] Pre Cert/Prior Auth (Mounjaro 2.5) Allergies No known active allergiesdocumented as of this encounter (statuses as of 05/06/2024) Medications Premarin 0.625 MG/GM Vaginal Cream (Estrogens, [...] 100 Strip 11 3 3:44 PM EST 023 Active OneTouch Delica Plus [id number] USE DIRECTED - TEST DAILY 100 Each 11 3 3:44 PM EST 023 Active CPAP every night at bedtime. Active Acetaminophen 500 MG Oral Tablet (Tylenol)Indicati ons:Strain of lumbar region, initial encounter Take 2 Tablets by mouth every 8 hours as needed for Pain, Moderate. 023 Active Additional Information Patient taking differently:1,000 mg Oral Q8H PRN, Pain, Moderate,Currently taking regular strength., Reported on 06/28/2023 Lantus SoloStar 100 UNIT/ML Subcutaneous Solution Pen-injectorIndic ations:Type 2 diabetes mellitus with hemoglobin A1c goal of less than 8.0% (HCC) Inject 56 Units under the skin daily. 60 mL 3 4 4:35 PM EDT 023 Active Additional Information Patient taking differently: 60 UnitsSubcutaneous Daily(Non-Specified),Per MTDM, Reported on 02/15/2024 Dexcom G7 Sensor Use as directed. 024 Active NovoLOG FlexPen 100 UNIT/ML Subcutaneous Solution Pen-injectorIndic ations:Type 2 diabetes mellitus with hemoglobin A1c goal of less than 8.0% (HCC) INJECT 35 UNITS UNDER THE SKIN WITH BREAKFAST AND DINNER, 30 UNITS WITH LUNCH, AND 25 UNITS WITH LOW CARB MEALS, LIKE SALAD - max 100 units per day 105 mL 2 4 8:51 AM EDT 024 Active Additional Information Patient taking differently: INJECT 38-39 UNITS UNDER THE SKIN WITH BREAKFAST AND DINNER, 38-39 UNITS WITH LUNCH, AND 25 UNITS WITH LOW CARB MEALS, LIKE SALAD - max 100 units per day, Reported on 04/18/2024 Glucagon Emergency 1 MG Injection KitIndications:Ty pe 2 diabetes mellitus with hemoglobin A1c goal of less than 8.0% (HCC) Inject as directed for blood sugars less than 55 or non-response 1 Kit 1 4 1:39 PM EDT 07/11/2 024 Active Aspirin 81 MG Oral Tablet Delayed ReleaseIndication s:heart Take 1 Tablet by mouth every evening. 250 Tablet Active Atorvastatin Calcium 80 MG Oral Tablet [...] 1 tablet in the evening 60 Tablet 4 10:48 AM EST Active Empagliflozin 25 [...] the morning. 100 Tablet 11 Active Pen [place] 32G X 4 MMIndications:Typ e 2 diabetes mellitus with hemoglobin A1c goal of less than 8.0% ([facility]) Use to take insulin 5 times daily E11.9 500 Each 3 4 1:29 PM EDT Active Tirzepatide 2.5 MG/0.5ML Subcutaneous Solution Auto-injector (Mounjaro) inject 2.5mg under the skin once a week 6 mL 3 Active documented as of this encounter (statuses as of 05/06/2024) Active Problems Problem Noted Date Diagnosed Date [...] hypothyroidism 01/25/2021 Adjustment disorder with depressed mood 01/26/20 21 History of melanoma 01/25/2021 Age-related osteoporosis wit dasha current pathological fracture 01/25/2021 MARVA on CPAP 01/25/2021 History of breast cancer 06/12/1989 Overview (11/05/2021): Reoccurance in 1995 documented as of this encounter (statuses as of 05/06/2024) Resolved Problems Problem Noted Date Diagnosed Date Resolved Date Type 2 diabetes mellitus wit h diabetic chronic kidney disease 02/07/2022 08/31/2022 Chronic kidney disease, stage 3a 06/21/2021 11/25/2021 Overview: Per CKD protocol Renal function test abnormal 01/25/2021 11/05/2021 documented as of this encounter (statuses as of 05/06/2024) Immunizations Name Administration Dates Next Due COVID-19 mRNA, LNP-s, No Pre serve, 2-Dose Series (Moderna) 04/05/2021,08/19/2020,07/22/2020 COVID-19, MRNA-LNP, PF, 30 M CG/0.3 mL, 12 YRS AND ABOVE, IM ([facility]) 03/06/2024,06/22/2023 COVID-19, mRNA, LNP-s, PF, B ooster, [...] encounter Miscellaneous Notes * Telephone Encounter - Taylor Hussein senior sql database developer - 05/06/2024 9:59 AM EST Checked status of prior authorization for Mounjaro 2.5mg through [employer]. Patient and pharmacy notified of approval. Approved until(if applicable): Taylor Retana [employer] [facility] 05/06/2024,9:59 AM * Telephone Encounter - Yessica Oliva OSA - 05/03/2024 4:58 PM EST Pharmacy calling to advise this med was approved and they will be faxing the auth * Telephone Encounter - Kamille Montes PHARM Tech - 05/03/2024 12:08 PM EST Submitted information in previous note via [employer] (EOC: [id number]).. Awaiting payer response. We will follow-up with insurance starting 05/06. Per [facility] request, if no decision is received from insurance by 05/07, we will route back to the [facility] after clarifying with the pharmacy that the claim is still not processing. Thank you, Kamille Montes CPhT [employer] [facility] 05/03/2024,12:08 PM * Telephone Encounter - Judith Shaffer [facility] - 05/02/2024 9:31 AM EST Please submit PA. Include the following documentation: OV Note 04/18/24 A1C 01/25/24 Please copy and paste the following information into PA form: Pt also prescribed Jardiance, Metformin, Novolog, Lantus What other drugs is there medical record documentation of therapeutic failure on, intolerance to, or contraindication to for this condition? N/a Edin as urgent: No Diagnosis/ICD-10 Code(s): E11.9 If instantaneous decision is not received after submitting prior auth, please continue to follow upon this and route back to the [facility] pool if no decision is made by the insurance by 05/07, after clarifying with the pharmacy that the claim is still not processing. If PA is denied, please also route back to [facility] pool. Thank you, Judith Shaffer, PharmD Clinical Pharmacist [facility] 05/02/24 9:31 AM [phone] * Telephone Encounter - Lizz Mayo CPhT - 05/02/2024 9:20 AM EST This is a new PA request. Upon review of this prior authorization request, I verified this request is appropriate. This is prescribed by a department for which [facility] is authorized to review prior authorizations This is not a duplicate encounter regarding the same prior authorization The patient is planning to use insurance The insurance information listed in previous note is correct and the plan that is requiring prior authorization The insurance does not cover either brand or generic forms of this script as written without prior authorization The insurance does not cover any NDCs of this script without prior authorization RX Estimate tool confirms this script needs prior authorization Of note, there is nothing currently pending in [facility] for this request. Please advise how to proceed. Thank you, Lizz Mayo Chief Green Officer [facility] 05/02/2024,9:20 AM * Telephone Encounter - Casie Davis CPhT - 05/02/2024 8:40 AM EST Pharmacy calling to inform doctor that the patient's insurance will not pay for this medication without a completed prior authorization. Did confirm this information with the pharmacy. Pt's current insurance information is as follows: Patient name: Summer Clark ID number: [id number] BIN number: [id number] PCN number: [id number] Group number: [id number] Subscriber name: Summer Clark Primary or Secondary Insurance:Primary Medication: mounjaro 2.5 Reason for Request: prior auth required Pharmacy and phone number: [facility] [phone] Rx plan and phone number: [facility] [phone] Is this a new medication for the patient? Yes What alternative medications does the pharmacy have in stock?: none Thank you, Casie Davis CphT [employer] [facility] 05/02/24 documented in this encounter Plan of Treatment Upcoming Encounters Date Type Department Care Team (Late st Contact Info) Description 05/20/2024 1:00 PM EST Office Visit Family Practice [facility] [address] [place] [phone] Dixon Corbin, [address] [place] [address] 05/29/2024 2:20 PM EST Office Visit Nephrology, [facility] [address] [place] [address] Reynaldo Alberts MD [address] [facility] [place] [address] 05/30/2024 11:00 AM EST Office Visit Family Practice [facility] [address] [place] [phone] College, Pharmacist [address] [place] [address] 05/30/2024 11:20 AM EST Office Visit Family Practice [facility] [address] [place] [phone] Dixon Corbin, DO [address] [facility] [address] 06/25/2024 1:30 PM EST Nutrition Services Nutrition Services [facility] [address] [place] [address] Kassy Hernandez, KATHERINE [address] [place] [address] 08/26/2024 1:00 PM EDT Nurse Only Family Practice [facility] [address] [place] [phone] Bette Kern RN [address] [place] [phone] 09/24/2024 11:40 AM EDT Office Visit Rheumatology [place] [id number] [place] [address] Wesley Coates MD [address] [place] [address], [place] [address] 10/08/2024 1:30 PM EDT Office Visit Sleep Disorders [facility] [address] [facility] [place] [phone] Toshia Castanon CRNP [address] [facility] [place] [address] 11/18/2024 2:00 PM EDT Office Visit Dermatology [facility] 200 [facility] [place] [address] River Foley MD 200 [facility] [place] [address] 12/27/2024 10:30 AM EDT Office Visit Cardiology, [facility] [address] [facility] [place] [address] Дмитрий Finley MD 132 [facility] [place] [address] Health Maintenance Due Date Last Done Comments GFR 07/03/2024 01/01/2024, 09/10, 09/18/2023, Additional history exists HbA1c 07/27/2024 01/25/2024, 09/10, 06/07/2023, Additional history exists Adult Wellness Visit 08/20/2024 08/21/2023 Depression Screening 08/20/2024 08/21/2023 Diabetic Foot Exam 08/20/2024 08/21/2023, 0 08/15/2022, 10/26/2021 CKD PHOS USE SMARTSET 98154 09/17/2024 04/0 01/2024, 08/09/2022, 11/09/2021 Diabetic Eye Exam 09/20/2024 09/21/2023, , 06/29/2023, Additional history exists Albumin/Creatinine Ratio 01/24/2025 024, 02/14/2023, 04/20/2022, Additional history exists CKD HGB USE SMARTSET 30666 02/27/202502/27, 01/25/2024, 01/25/2024, Additional history exists TSH 03/25/2025 03/25/2024, 12/11, 09/26/2023, Additional history exists DXA Scan 09/18/2025 09/19/2023, 0202/2022, 07/21/2021 DTap/Tdap Vaccines (2 - Td or Tdap) 02/08/2032 02/07/2022 Pneumococcal Vaccine: 65+ Years Completed 12/20/2016, 11/30/2015 Zoster Vaccines Completed 04/27/2019, 03/08/2018 VITAMIN D LEVEL ONCE IN A LIFETIME-USE SMARTSET# [id number] Completed 09/26/2023, 09/18/2023, 08/09/2022, Additional history exists [...] filedocumented as of this encounter Care Teams Trimming Inspector Relationship Specialty Start Date End Date Dixon Corbin DO [address] [place] [address] PCP - General Internal Medicine 12/21/23 documented as of this encounter
--- OUTSIDE RECORDS SUMMARY | 2024-05-15 03:29 | External Medical Summary | Summary of Care ---
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; Type 2 diabetes mellitus with stage 3b chronic kidney disease, with long-term current use of insulin ([facility]); Hemiparesis affecting right side as late effect of stroke ([facility]); Acquired hypothyroidism; MARVA on CPAP; Gastroesophageal reflux disease, unspecified whether esophagitis present; Diabetes mellitus with nephropathy ([facility]); Cerebrovascular disease, unspecified; Expressive aphasia Allergies No known active allergiesdocumented as of [...] PM EST 023 Active OneTouch Delica Plus [id number] USE DIRECTED - TEST DAILY 100 Each [...] 1 Kit 1 4 1:39 PM EDT Active Aspirin 81 MG Oral Tablet Delayed [...] 84 Tablet 11 4 12:53 PM EDT Active Sertraline HCl 100 MG Oral Tablet [...] the morning. 100 Tablet 11 Active Pen Hazard 32G X 4 MMIndications:Typ e 2 diabetes mellitus with hemoglobin A1c goal of less than 8.0% (HCC) Use to take insulin 5 times daily E11.9 500 Each 3 4 1:29 PM EDT Active Tirzepatide 2.5 MG/0.5ML Subcutaneous Solution Auto-injector (Mounjaro) inject 2.5mg under the skin once a week 6 mL 2 Active documented as of this encounter (statuses [...] History of melanoma 01/25/2021 Age-related osteoporosis wit hout current pathological fracture 01/25/2021 MARVA on CPAP [...] CG/0.3 mL, 12 YRS AND ABOVE, [facility] 03/06/2024,06/22/2023 COVID-19, mRNA, LNP-s, PF, B ooster, [...] Passive Smoke Exposure: Past Smokeless Tobacco: Never Tobacco Cessation:Counseling Given: Yes Alcohol Use Standard Drinks/Week Comments Yes 0 [...] AM EDT documented as of this encounter Last Filed Vital Signs Vital Sign Reading Time Taken Comments Blood Pressure 120/86 05/06/2024 10:58 AM EST Pulse 84 05/06/2024 10:58 AM EST Temperature - - Respiratory Rate 16 05/06/2024 10:58 AM EST Oxygen Saturation 90% 05/06/2024 10:58 AM EST Inhaled Oxygen Concentration - - Weight - - Height - - Body Mass Index - - documented in this encounter Progress Notes * Dixon Corbin, DO - 05/06/2024 1:03 PM EST SUBJECTIVE: Summer Clark is a 78 year old female. Chief Complaint Patient presents with Acute HPI: Patient is a 78 year old female with a history of DM type II, Hypothyroidism, Osteoporosis, Depression, Sleep Apnea, CKD stage III, GERD, right hemiparesis post CVA, Expressive Aphasia, and left Breast Cancer treated with surgery / chemotherapy / radiation that is seen pain post fall. The patient slid out of bed 2 days ago and struck her head on a table. She also hit her gluteal area on the ground. The patient has sacral and left thigh pain that has worsened since falling. No headache is present.. She is having more difficulty ambulating. Fall was not witnessed. No chest pain or shortness of breath are present. Patient Active Problem List Diagnosis Type 2 diabetes mellitus with hemoglobin A1c goal of less than 8.0% (HCC) Acquired hypothyroidism Adjustment disorder with depressed mood History of melanoma Age-related osteoporosis without current pathological fracture MARVA on CPAP Gastroesophageal reflux disease Hemiparesis affecting right side as late effect of stroke (HCC) Diabetes mellitus with nephropathy (HCC) Cerebrovascular disease, unspecified History of breast cancer Chronic kidney disease, stage 3b (HCC) Hemorrhoids, external without complications Type 2 diabetes mellitus with stage 3b chronic kidney disease, with long-term current use of insulin (HCC) Mixed dyslipidemia Expressive aphasia HTN, goal below 140/90 Current Outpatient Medications Medication Sig Dispense Refill Folic Acid 400 MCG Oral Tablet Take 1 Tablet by mouth in the morning. CPAP every night at bedtime. Acetaminophen 500 MG Oral Tablet (Tylenol) Take 2 Tablets by mouth every 8 hours as needed for Pain, Moderate. (Patient taking differently: Take 2 Tablets by mouth every 8 hours as needed for Pain, Moderate. Currently taking regular strength.) Lantus SoloStar 100 UNIT/ML Subcutaneous Solution Pen-injector Inject 56 Units under the skin daily. (Patient taking differently: Inject 60 Units under the skin daily. Per MTDM) 60 mL 3 NovoLOG FlexPen 100 UNIT/ML Subcutaneous Solution Pen-injector INJECT 35 UNITS UNDER THE SKIN WITH BREAKFAST AND DINNER, 30 UNITS WITH LUNCH, AND 25 UNITS WITH LOW CARB MEALS, LIKE SALAD - max 100 units per day (Patient taking differently: INJECT 38-39 UNITS UNDER THE SKIN WITH BREAKFAST AND DINNER, 38-39 UNITS WITH LUNCH, AND 25 UNITS WITH LOW CARB MEALS, LIKE SALAD - max 100 units per day) 105 mL 2 Aspirin 81 MG Oral Tablet Delayed Release Take 1 Tablet by mouth every evening. 250 Tablet 11 Atorvastatin Calcium 80 MG Oral Tablet (Lipitor) Take 1 Tablet by mouth every evening. 28 Tablet 11 buPROPion HCl ER (XL) 150 MG Oral Tablet Extended Release 24 Hour (Wellbutrin XL) Take 1 Tablet by mouth in the morning. 28 Tablet 11 Empagliflozin 25 MG Oral Tablet (Jardiance) Take 1 Tablet by mouth in the morning. 28 Tablet 11 Ezetimibe 10 MG Oral Tablet (Zetia) Take 1 Tablet by mouth every evening. 28 Tablet 11 Levothyroxine Sodium 100 MCG Oral Tablet (Levoxyl) Take 1 Tablet by mouth daily first thing in the morning. 28 Tablet 11 Lisinopril 10 MG Oral Tablet (Prinivil) Take 1 Tablet by mouth in the morning. 28 Tablet 3 metFORMIN HCl ER 500 MG Oral Tablet Extended Release 24 Hour (Glucophage XR) Take 2 tablets by mouth every morning and 1 tablet every evening 84 Tablet 11 Sertraline HCl 100 MG Oral Tablet (Zoloft) Take 1 Tablet by mouth in the morning. With sertraline 50 mg tablet.. 28 Tablet 11 Sertraline HCl 50 MG Oral Tablet (Zoloft) Take 1 Tablet by mouth in the morning. With sertraline 100 mg tablet. 28 Tablet 11 Cholecalciferol 125 MCG (5000 UT) Oral Capsule (D-3-5) Take 1 Capsule by mouth every evening. 100 Capsule 11 Super B Complex/Vitamin C Oral Tablet Take 1 Tablet by mouth in the morning. 100 Tablet 11 Tirzepatide 2.5 MG/0.5ML Subcutaneous Solution Auto-injector (Mounjaro) inject 2.5mg under the skinonce a week 6 mL 2 Premarin 0.625 MG/GM Vaginal Cream (Estrogens, Conjugated) Administer into the vagina at bedtime. As directed. (Patient taking differently: Administer into the vagina at bedtime. Only when gets a rash) 90 g 5 Prolia 60 MG/ML Subcutaneous Solution Prefilled Syringe (Denosumab) Inject 60 mg under the skin once. Inject 1 milliliter by subcutaneous route every 6 months in the upper arm, upper thigh or abdomen. OneTouch Verio In Vitro Strip (Glucose Blood) Use to test blood sugar daily 100 Strip 11 OneTouch Delica Plus [id number] USE DIRECTED - TEST DAILY 100 Each 11 Dexcom G7 Sensor Use as directed. Glucagon Emergency 1 MG Injection Kit Inject as directed for blood sugars less than 55 or non-response 1 Kit 1 Tums Smoothies 750 MG Oral Tablet Chewable (calcium CARBonate) Chew 2 tablets by mouth in the morning and 1 tablet in the evening 60 Tablet 11 Pen Hazard 32G X 4 MM Use to take insulin 5 times daily E11.9 500 Each 3 Famotidine 20 MG Oral Tablet (Pepcid) Take 1 Tablet by mouth in the morning and 1 Tablet before bedtime. No current facility-administered medications for this visit. The patient's medication list was reviewed and updated as needed. Past Medical History: Diagnosis Date Breast cancer ([facility]) 1989 Reoccurance in 1995 Expressive aphasia 03/08/2023 Hypothyroidism Sleep apnea, obstructive Stroke ([facility]) 2000 Right side paraylsis Type 2 diabetes mellitus with hemoglobin A1c goal of less than 8.0% ([facility]) 01/25/2021 Wound, breast with complication 2007 Breast wound cleaned out Past Surgical History: Procedure Laterality Date BREAST BIOPSY Left 1995 CHEMOTHERAPY Left 1995 MASTECTOMY, PARTIAL Left 1989 MASTECTOMY, SIMPLE, COMPLETE Left 1995 NM BREAST SENTINAL NODE INJ OR Left 1989 4 nodes positive MD ARTHRP ACETBLR/PROX FEM PROSTC AGRFT/ALGRFT Left RADIATION THERAPY Left 1996 REDUCTION OF BREAST Right 1996 Review of patient's allergies indicates: No Known Allergies Review of Systems Constitutional: Negative for appetite change, fatigue and unexpected weight change. Respiratory: Negative for cough, shortness of breath and wheezing. Cardiovascular: Negative for chest pain, palpitations and leg swelling. Gastrointestinal: Negative for abdominal pain, blood in stool, constipation, diarrhea, nausea and vomiting. Genitourinary: Negative for dysuria and hematuria. Musculoskeletal: Positive for arthralgias, back pain and gait problem. Neurological: Positive for speech difficulty. Negative for dizziness, syncope and headaches. Psychiatric/Behavioral: Negative for confusion, decreased concentration and sleep disturbance. OBJECTIVE: BP 120/86 | Pulse 84 | Resp 16 | SpO2 90% Physical Exam Vitals and nursing note reviewed. Constitutional: General: She is not in acute distress. Appearance: Normal appearance. She is not toxic-appearing. HENT: Head: Normocephalic and atraumatic. Cardiovascular: Rate and Rhythm: Normal rate and regular rhythm. Heart sounds: Normal heart sounds. No murmur heard. No gallop. Pulmonary: Effort: Pulmonary effort is normal. Breath sounds: Normal breath sounds. No wheezing, rhonchi or rales. Abdominal: General: Bowel sounds are normal. There is no distension. Palpations: Abdomen is soft. Tenderness: There is no abdominal tenderness. Musculoskeletal: Right lower leg: No edema. Left lower leg: No edema. Comments: Pain in sacral area and left pelvis with palpation. Neurological: Mental Status: She is alert. Mental status is at baseline. Motor: Weakness present. Gait: Gait abnormal. Psychiatric: Mood and Affect: Mood normal. Behavior: Behavior normal. Thought Content: Thought content normal. 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 Concern for pelvic and Sacral Fracture Will sent to [facility] ED for evaluation Type 2 diabetes mellitus with stage 3b chronic kidney disease, with long-term current use of insulin (HCC) Continue Empagliflozin, Metformin, Mounjaro, Lantus, and Novolog Hemiparesis affecting right side as late effect of stroke ([facility]) Chronic Acquired hypothyroidism Continue Levothyroxine MARVA on CPAP Gastroesophageal reflux disease, unspecified whether esophagitis present Continue Famotidine Diabetes mellitus with nephropathy (HCC) Cerebrovascular disease, unspecified Expressive aphasia Follow Up: Return in about 2 weeks (around 05/20/2024), or if symptoms worsen or fail to improve. Dixon Corbin DO 1:03 PM 05/06/2024 documented in this encounter Nursing Notes * Bette Ayala LPN - 05/06/2024 10:55 AM EST Patient slid out of bed Monday night, hit tail bone also she states she did hit her head. documented in this encounter Plan of Treatment Upcoming Encounters Date Type Department Care Team (Late st Contact Info) Description 05/20/2024 1:00 PM EST Office Visit Family Practice [address] [place] [address] [address] [place] [phone] Dixon Corbin DO [address] [place] [id number] 05/29/2024 2:20 PM EST Office Visit Nephrology, [facility] [address] [facility] [place] [address] Reynaldo Alberts MD [address] [facility] [place] [address] 05/30/2024 11:00 AM EST Office Visit Family Practice [address] [place] [address] [address] [place] [phone] College, Pharmacist [address] [place] [address] 05/30/2024 11:20 AM EST Office Visit Family Practice [address] [place] [address] [address] [place] [phone] Dixon Corbin DO [address] [place] [address] 06/25/2024 1:30 PM EST Nutrition Services Nutrition Services [address] [facility] [address] [place] [address] Kassy Hernandez RDN [address] [place] [address] 08/26/2024 1:00 PM EDT Nurse Only Family Practice [address] [facility] [address] [place] [phone] Bette Kern RN [address] [place] [phone] 09/24/2024 11:40 AM EDT Office Visit Rheumatology [address] [place] [address] Wesley Coates MD [address] [place] [address] [place] [address] 10/08/2024 1:30 PM EDT Office Visit Sleep Disorders Ctr [facility] [address] [place] [phone] Toshia Castanon CRNP [address] [place] [address] 11/18/2024 2:00 PM EDT Office Visit Dermatology [facility] [place] [address] River Foley MD [address] [facility] [place] [address] 12/27/2024 10:30 AM EDT Office Visit Cardiology, [facility] [address] [place] [address] Дмитрий Finley MD [address] [place] [address] Health Maintenance Due Date Last Done Comments GFR 07/03/2024 01/01/2024, 09/10, 09/18/2023, Additional history exists HbA1c 07/27/2024 01/25/2024, 09/10, 06/07/2023, Additional history exists Adult Wellness Visit 08/20/2024 08/21/2023 Depression Screening 08/20/2024 08/21/2023 Diabetic Foot Exam 08/20/2024 08/21/2023, 0 08/15/2022, 10/26/2021 CKD PHOS USE SMARTSET [id number] 09/17/2024 04/0 01/2024, 08/09/2022, 11/09/2021 Diabetic Eye Exam 09/20/2024 09/21/2023, , 06/29/2023, Additional history exists Albumin/Creatinine Ratio 01/24/2025 024, 02/14/2023, 04/20/2022, Additional history exists CKD HGB USE SMARTSET 25473 02/27/202502/27, 01/25/2024, 01/25/2024, Additional history exists TSH 03/25/2025 03/25/2024, 12/11, 09/26/2023, Additional history exists DXA Scan 09/18/2025 09/19/2023, 0202/2022, 07/21/2021 DTap/Tdap Vaccines (2 - Td or Tdap) 02/08/2032 02/07/2022 Pneumococcal Vaccine: 65+ Years Completed 12/20/2016, 11/30/2015 Zoster Vaccines Completed 04/27/2019, 03/08/2018 VITAMIN D LEVEL ONCE IN A LIFETIME-USE SMARTSET# [id number] Completed 09/26/2023, 09/18/2023, 08/09/2022, Additional history exists [...] Not on filedocumented as of this encounter Visit Diagnoses Diagnosis Traumatic injury of head, initial encounter- Primary 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, with long-term current use of insulin (HCC) Hemiparesis affecting right side as late effect of stroke (HCC) Hemiplegia affecting unspecified side, late effect of cerebrovascular disease Acquired hypothyroidism Unspecified hypothyroidism MARVA on CPAP Obstructive sleep apnea (adult) (pediatric) Gastroesophageal reflux disease, unspecified whether esophagitis present Diabetes mellitus with nephropathy (HCC) Type II or unspecified type diabetes mellitus with renal manifestations, not stated as uncontrolled Cerebrovascular disease, unspecified Expressive aphasia Aphasia documented in this encounter Care Teams Cardboard Cutter Relationship Specialty Start Date End Date Dixon Corbin DO [address] [place] [address] PCP - General Internal Medicine 12/21/23 documented as of this encounter"
--- OUTSIDE RECORDS SUMMARY | 2024-05-15 03:29 | External Medical Summary | Summary of Care ---
Author Name Unknown Organization [facility] Address [address] [place] [address] Phone [phone] Care Team Providers Care Reordering Clerk Name Role Phone Dixon Corbin DO Primary Care Provider [phone] Reason for Visit * Reason Onset Date Comments Information 05/07/2024 ER follow up turner robles Encounter Details Date Type Department Care Team (Late st Contact Info) Description 05/07/2024 Telephone Family Practice 65 [facility], [place] [address] [place] [address] Dixon Corbin DO [address] [place] [address] Information (ER follow up call.//) Allergies No known active allergiesdocumented as of [...] to test blood sugar daily 100 Strip 06/14/19 3:44 PM EST Active OneTouch Delica Plus [id number] USE DIRECTED - TEST DAILY 100 Each 06/14/19 3:44 PM EST Active CPAP every night [...] under the skin daily. 60 mL 3 02/26/20 24 4:35 PM EDT 023 Active Additional Information [...] 100 units per day 105 mL 2 03/12/20 24 8:51 AM EDT 024 Active Additional Information [...] than 55 or non-response 1 Kit 1 12/26/19 24 1:39 PM EDT 024 Active Aspirin 81 [...] mouth in the morning. 28 Tablet 11 04/11/20 12:53 PM EDT Active Tums Smoothies 750 MG Oral Tablet Chewable (calcium CARBonate)Indicat ions:heartburn Chew 2 tablets by mouth in the morning and 1 tablet in the evening 60 Tablet 05/03/20 10:48 AM EST Active Empagliflozin 25 MG Oral Tablet (Jardiance)Indica tions:Type 2 diabetes mellitus with hemoglobin A1c goal of less than 8.0% (HCC),Encounter for long-term (current) use of medications Take 1 Tablet by mouth in the morning. 28 Tablet 11 04/11/20 12:53 PM EDT Active Ezetimibe 10 MG Oral Tablet (Zetia)Indication s:Encounter for long-term (current) use of medications Take 1 Tablet by mouth every evening. 28 Tablet Active Levothyroxine Sodium 100 MCG Oral Tablet (Levoxyl)Indicati ons:Encounter for long-term (current) use of medications,Acqui red hypothyroidism Take 1 Tablet by mouth daily first thing in the morning. 28 Tablet 11 05/03/20 10:48 AM EST Active Lisinopril 10 MG Oral Tablet (Prinivil) Take 1 Tablet by mouth in the morning. 28 Tablet 3 04/11/20 12:53 PM EDT 024 Active metFORMIN HCl ER 500 MG Oral Tablet Extended Release 24 Hour (Glucophage XR)Indications:Ty pe 2 diabetes mellitus with hemoglobin A1c goal of less than 8.0% (HCC) Take 2 tablets by mouth every morning and 1 tablet every evening 84 Tablet 11 04/11/20 12:53 PM EDT 024 Active Sertraline HCl 100 MG Oral Tablet (Zoloft)Indicatio ns:Adjustment disorder with depressed mood Take 1 Tablet by mouth in the morning. With sertraline 50 mg tablet.. 28 Tablet 11 04/11/20 12:53 PM EDT Active Sertraline HCl 50 MG Oral Tablet (Zoloft)Indicatio ns:Adjustment disorder with depressed mood Take 1 Tablet by mouth in the morning. With sertraline 100 mg tablet. 28 Tablet 04/11/20 12:53 PM EDT Active Cholecalciferol 125 MCG (5000 UT) Oral Capsule (D-3-5)Indication s:general health Take 1 Capsule by mouth every evening. 100 Capsule 11 04/11/20 12:53 PM EDT Active Super B Complex/Vitamin C Oral Tablet Take 1 Tablet by mouth in the morning. 100 Tablet Active [place] 32G X 4 MMIndications:Typ e 2 diabetes mellitus with hemoglobin A1c goal of less than 8.0% ([facility]) Use to take insulin 5 times daily E11.9 500 Each 3 03/26/20 1:29 PM EDT Active Tirzepatide 2.5 MG/0.5ML Subcutaneous Solution Auto-injector (Mounjaro) inject 2.5mg under the skin once a week 6 mL 2 05/07/20 7:31 AM EST Active Famotidine 20 MG Oral Tablet (Pepcid) Take 1 Tablet by mouth in the morning and 1 Tablet before bedtime. Active Cephalexin 500 MG Oral Capsule (Keflex) take 1 capsule by mouth twice a day 10 Capsule 05/06/20 5:36 PM EST Active Naproxen 500 MG Oral Tablet (Naprosyn) take 1 tablet by mouth twice a day As Needed for pain 20 Tablet 05/06/20 5:36 PM EST 2023 Disconti nued(Pat deandrant monicaen ce/disco ntene on) documented as of this encounter (statuses as [...] CG/0.3 mL, 12 YRS AND ABOVE, IM [facility] 03/06/2024,06/22/2023 COVID-19, mRNA, LNP-s, PF, B ooster, [...] encounter Miscellaneous Notes * Telephone Encounter - Bette Ayala LPN - 05/07/2024 3:12 PM EST Spoke to spouse, made aware. Thank you * Telephone Encounter - Dixon Corbin DO - 05/07/2024 3:05 PM EST Stop Naproxen Take Acetaminophen 1000 mg three times a day as needed. * Telephone Encounter - Bette Ayala LPN - 05/07/2024 1:20 PM EST The patient was contacted in regards to their recent: Emergency Department visit Did patient call the office before going to ER: Yes When was patient seen: 05/06/2024 Which ED: [facility] What were they seen for: post fall at home, slid out of bed. Hit bottom pretty hard. What did ED think was wrong (dx): no fractures What testing did they have done: ct scan and xray, urine testing Any new medications prescribed: antibiotics, er felt uti When did the ED recommend they follow up: yes Is Ed record available: Yes How is patient feeling today: doing better this morning but now pain is returning. Currently in bedwatching tv Patient concerns today: nothing [address] [facility] [place] [place] Report Date of Fall: 05/04/2024 Time of Fall: during the night Patient Name: Summer Clark Location of Fall: Bedroom Factors Involved in Falls: Impaired Balance Description of Fall:slid out of bed and lost balance What was the patient doing before the fall?was in bed Describe positioning on the floor:spouse not sure Fall Category: Fall/Trip/Slip Fall Witnessed: No Did patient use First Alert or Lifeline?No EMS Response:No At time of the fall were there any injuries apparent? No If yes, area of injury: sacral area At the time of the fall, did the patient complain of pain? Yes If yes, where?sacral area Did the patient complain of dizziness?No During the fall was the patient using an assistive device? Yes Were any monitoring Devices in Place: Was the patient wearing Appropriate Footwear: Was patient assisted in getting up? No If yes, by whom? Previous Interventions: patient went to ER, ems called post at office visit Compliance with interventions: Yes Number of falls in the past month: 1 Number of falls in the past 6 months: none Recommendations: Provider Assessment Does have a cane she uses, and spouse has placed a rubber mat on hard wood floor beside bed. Is scheduled currently on 05/20, do you wish to see patient any sooner Currently does have PT in home. Was given keflex 500 mg twice daily for 10 days for uti. Patient also was told to take naprosyn 500 mg twice daily Family Practice [address] [address] 05/07/2024 documented in this encounter Plan of Treatment Upcoming Encounters Date Type Department Care Team (Late st Contact Info) Description 05/20/2024 1:00 PM EST Office Visit Family Practice 65 [facility] [address] [place] [address] Dixon Corbin, DO 293 [place] [address] 05/29/2024 2:20 PM EST Office Visit Nephrology, [facility] [address] [place] [address] Reynaldo Alberts MD [address] [place] [address] 05/30/2024 11:00 AM EST Office Visit Family Practice 65 [facility] [address] [place] [address] College, Pharmacist [address] [place] [address] 05/30/2024 11:20 AM EST Office Visit Family Practice 65 [facility] [address] [place] [phone] Dixon Corbin, DO 293 [facility] [address] 06/25/2024 1:30 PM EST Nutrition Services Nutrition Services [address] [place] [address] Kassy Hernandez RDN [address] [place] [address], [place] [address] 08/26/2024 1:00 PM EDT Nurse Only Family Practice 65 [facility] [address] [place] [address] Bette Kern, KIMBERLY [address] [place] [address], [place] [address] 09/24/2024 11:40 AM EDT Office Visit Rheumatology [address] [place] [address] Wesley Coates MD [address] [facility] [place], [place] [address] 10/08/2024 1:30 PM EDT Office Visit Sleep Disorders [facility] [address] [facility] [place] [phone] Toshia Castanon CRNP [address] [place] [address] 11/18/2024 2:00 PM EDT Office Visit Dermatology [facility] [address] [facility] [place] [address] River Foley MD [address] [place] [address] 12/27/2024 10:30 AM EDT Office Visit Cardiology, [facility] [address] [place] [address] Дмитрий Finley MD [address] [place] [address] Health Maintenance Due Date Last Done Comments GFR 07/03/2024 01/01/2024, 09/10, 09/18/2023, Additional history exists HbA1c 07/27/2024 01/25/2024, 09/10, 06/07/2023, Additional history exists Adult Wellness Visit 08/20/2024 08/21/2023 Depression Screening 08/20/2024 08/21/2023 Diabetic Foot Exam 08/20/2024 08/21/2023, 0 08/15/2022, 10/26/2021 CKD PHOS USE SMARTSET 73916 09/17/2024 04/0 01/2024, 08/09/2022, 11/09/2021 Diabetic Eye Exam 09/20/2024 09/21/2023, , 06/29/2023, Additional history exists Albumin/Creatinine Ratio 01/24/2025 024, 02/14/2023, 04/20/2022, Additional history exists CKD HGB USE SMARTSET 01525 02/27/202502/27, 01/25/2024, 01/25/2024, Additional history exists TSH 03/25/2025 03/25/2024, 12/11, 09/26/2023, Additional history exists DXA Scan 09/18/2025 09/19/2023, 02/2022, 07/21/2021 DTap/Tdap Vaccines (2 - Td or Tdap) 02/08/2032 02/07/2022 Pneumococcal Vaccine: 65+ Years Completed 12/20/2016, 11/30/2015 Zoster Vaccines Completed 04/27/2019, 03/08/2018 VITAMIN D LEVEL ONCE IN A LIFETIME-USE SMARTSET# [id number] Completed 09/26/2023, 09/18/2023, 08/09/2022, Additional history exists [...] filedocumented as of this encounter Care Teams Reordering Clerk Relationship Specialty Start Date End Date Dixon Corbin DO [address] [facility] [place] [address] PCP - General Internal Medicine 12/21/23 documented as of this encounter
--- OUTSIDE RECORDS SUMMARY | 2024-05-15 04:02 | External Medical Summary | Summary of Care ---
Author Name Unknown Organization [facility] Address [address] [place] [address] Phone [phone] Care Team Providers Care Continuous Crusher Operator Name Role Phone Dixon Corbin DO Primary Care Provider [phone] Reason for Visit * Reason Comments Emergency Department Follow-Up Encounter Details Date Type Department Care Team (Late st Contact Info) Description 05/13/2024 3:20 PM EST Office Visit Family Practice [address] [facility] [place] [address] [place] [phone] Dixon Corbin DO [address] [place] [address] Coccyx contusion, subsequent encounter*; Encounter for long-term (current) use of medications; Type 2 diabetes mellitus with hemoglobin A1c goal of less than 8.0% ([facility]); Acquired hypothyroidism; Adjustment disorder with depressed mood; Age-related osteoporosis without current pathological fracture; MARVA on CPAP; Hemiparesis affecting right side as late effect of stroke ([facility]); Diabetes mellitus with nephropathy ([facility]); Cerebrovascular disease, unspecified; Type 2 diabetes mellitus with stage 3b chronic kidney disease, with long-term current use of insulin ([facility]); Mixed dyslipidemia; Expressive aphasia; HTN, goal below 140/90; History of breast cancer Allergies No known active allergiesdocumented as of this encounter (statuses as of 05/13/2024) Medications Folic Acid 400 MCG Oral TabletIndications :general [...] daily 100 Strip 06/14/19 3:44 PM EST 023 Active OneTouch Delica Plus [id number] USE DIRECTED - TEST DAILY 100 Each 06/14/19 23 3:44 PM EST 023 Active CPAP every night at bedtime. Active Acetaminophen 500 MG Oral Tablet (Tylenol)Indicati ons:Strain of lumbar region, initial encounter Take 2 Tablets by mouth every 8 hours as needed for Pain, Moderate. 023 Active Additional Information Patient taking differently:1,000 mg Oral Q8H PRN, Pain, Moderate,Currently taking regular strength., Reported on 05/13/2024 Lantus SoloStar 100 UNIT/ML Subcutaneous Solution Pen-injectorIndic ations:Type 2 diabetes mellitus with hemoglobin A1c goal of less than 8.0% (HCC) Inject 56 Units under the skin daily. 60 mL 3 02/26/20 24 4:35 PM EDT 023 Active Additional Information Patient taking differently: 60 UnitsSubcutaneous Daily(Non-Specified),Per MTDM, Reported on 05/13/2024 Dexcom G7 Sensor Use as directed. 024 [...] Kit 1 12/26/19 24 1:39 PM EDT Active Aspirin 81 MG [...] tablet in the evening 60 Tablet 11 05/03/20 10:48 AM EST Active Empagliflozin 25 MG Oral Tablet (Jardiance)Indica tions:Type 2 diabetes mellitus with hemoglobin A1c goal of less than 8.0% ([facility]),Encounter for long-term (current) use of medications Take [...] in the morning. 28 Tablet 11 05/03/20 24 10:48 AM EST Active Lisinopril 10 MG [...] 84 Tablet 11 04/11/20 12:53 PM EDT Active Sertraline HCl 100 MG Oral Tablet (Zoloft)Indicatio ns:Adjustment disorder with depressed mood Take 1 Tablet by mouth in the morning. With sertraline 50 mg tablet.. 28 Tablet 11 04/11/20 24 12:53 PM EDT Active Sertraline HCl 50 MG Oral Tablet (Zoloft)Indicatio ns:Adjustment disorder with depressed mood Take 1 Tablet by mouth in the morning. With sertraline 100 mg tablet. 28 Tablet 04/11/20 12:53 PM EDT Active Cholecalciferol 125 MCG (5000 UT) Oral Capsule (D-3-5)Indication s:general health Take 1 Capsule by mouth every evening. 100 Capsule 04/11/20 12:53 PM EDT Active Super B Complex/Vitamin C Oral Tablet Take 1 Tablet by mouth in the morning. 100 Tablet Active Pen Syosset 32G X 4 MMIndications:Typ e 2 diabetes mellitus with hemoglobin A1c goal of less than 8.0% ([facility]) Use to take insulin 5 times daily E11.9 500 Each 3 03/26/20 1:29 PM EDT Active Famotidine 20 MG Oral Tablet (Pepcid) Take 1 Tablet by mouth in the morning and 1 Tablet before bedtime. Active Premarin 0.625 MG/GM Vaginal Cream (Estrogens Conjugated)Indica tions:Encounter for long-term (current) use of medications Administer into the vagina at bedtime. As directed. 90 g 5 Active Lidocaine 4 % External Patch (Aspercreme)Indic ations:Coccyx contusion, subsequent encounter Place 1 Patch over 12 hours topically on the skin daily. 30 Patch Active Premarin 0.625 MG/GM Vaginal Cream (Estrogens, Conjugated)Indica tions:Encounter for long-term (current) use of medications Administer into the vagina at bedtime. As directed. 90 g 5 021 2023 Disconti nued(Ref ill) Tirzepatide 2.5 MG/0.5ML Subcutaneous Solution Auto-injector (Arianne) inject 2.5mg under the skin once a week 6 mL 2 05/07/20 24 7:31 AM EST 024 2023 Disconti nukaren(Med ication/ Dose Changed) documented as of this encounter (statuses as of 05/13/2024) Active Problems Problem Noted Date Diagnosed Date [...] as of this encounter (statuses as of 05/13/2024) Resolved Problems Problem Noted Date Diagnosed Date Resolved Date Type 2 diabetes mellitus wit h diabetic chronic kidney disease 02/07/2022 08/31/2022 Chronic kidney disease, stage 3a 06/21/2021 11/25/2021 Overview: Per CKD protocol Renal function test abnormal 01/25/2021 11/05/2021 documented as of this encounter (statuses as of 05/13/2024) Immunizations Name Administration Dates Next Due COVID-19 mRNA, LNP-s, No Pre serve, 2-Dose Series (Moderna) 04/05/2021,08/19/2020,07/22/2020 COVID-19, MRNA-LNP, PF, 30 M CG/0.3 mL, 12 YRS AND ABOVE, IM (PFIZER-Comirnaty) 03/06/2024,06/22/2023 COVID-19, mRNA, LNP-s, PF, B ooster, [...] Past Smokeless Tobacco: Never Tobacco Cessation:Counseling Given: Not Answered Alcohol Use Standard Drinks/Week Comments Yes 0 [...] Sign Reading Time Taken Comments Blood Pressure 124/64 05/13/2024 3:34 PM EST Pulse 81 05/13/2024 3:34 PM EST Temperature 36.5 C (97.7 F) 05/13/2024 3:34 PM ES T Respiratory Rate - - Oxygen Saturation 92% 05/13/2024 3:34 PM EST Inhaled Oxygen Concentration - - Weight 69.9 kg (154 lb 1.6 oz) 05/13/2024 3:34 P M EST Height 163.8 cm (5' 4.5") 05/13/2024 3:34 PM EST Body Mass Index 26.04 05/13/2024 3:34 PM EST documented in this encounter Progress Notes * Dixon Corbin DO - 05/13/2024 4:05 PM EST SUBJECTIVE: Summer Clark is a 78 year old female. Chief Complaint Patient presents with Emergency Department Follow-Up HPI: Patient is a 78 year old female with a history of DM type II, Hypothyroidism, Osteoporosis, Depression, Sleep Apnea, CKD stage III, GERD, right hemiparesis post CVA, Expressive Aphasia, and left Breast Cancer treated with surgery / chemotherapy / radiation that is seen pain post fall. The patient slid out of bed 05/04/2024 and struck her head on a table. She also hit her gluteal area on the ground. The patient was seen in the ED at [facility] on 05/06/2024. She is having more difficulty ambulating. ER records reviewed. No fractures on CT head, and CT abdomen/ Pelvis. Labs were within acceptable range. No chest pain or shortness of breath are present. Sacral pain has not improved. Patient Active Problem List Diagnosis Type 2 [...] Current Outpatient Medications Medication Sig Dispense Refill Premarin 0.625 MG/GM Vaginal Cream (Estrogens Conjugated) Administer into the vagina at bedtime. Asdirected. 90 g 5 Lidocaine 4 % External Patch (Aspercreme) Place 1 Patch over 12 hours topically on the skin daily. 30 Patch 0 Folic Acid 400 MCG Oral Tablet Take 1 Tablet by mouth in the morning. Prolia 60 MG/ML Subcutaneous Solution Prefilled Syringe (Denosumab) Inject 60 mg under the skin once. Inject 1 milliliter by subcutaneous route every 6 months in the upper arm, upper thigh or abdomen. OneTouch Verio In Vitro Strip (Glucose Blood) Use to test blood sugar daily 100 Strip 11 OneTouch Delica Plus [id number] USE DIRECTED - TEST DAILY 100 Each 11 CPAP every night at bedtime. Acetaminophen 500 [...] skin daily. Per MTDM) 60 mL 3 Dexcom G7 Sensor Use as directed. NovoLOG FlexPen 100 UNIT/ML Subcutaneous Solution Pen-injector [...] 100 units per day) 105 mL 2 Glucagon Emergency 1 MG Injection Kit Inject as directed for blood sugars less than 55 or non-response 1 Kit 1 Aspirin 81 MG Oral Tablet Delayed Release Take 1 Tablet by mouth every evening. 250 Tablet 11 Atorvastatin Calcium 80 MG Oral Tablet (Lipitor) Take 1 Tablet by mouth every evening. 28 Tablet 11 buPROPion HCl ER (XL) 150 MG Oral Tablet Extended Release 24 Hour (Wellbutrin XL) Take 1 Tablet by mouth in the morning. 28 Tablet 11 Tums Smoothies 750 MG Oral Tablet Chewable (calcium CARBonate) Chew 2 tablets by mouth in the morning and 1 tablet in the evening 60 Tablet 11 Empagliflozin 25 MG Oral Tablet [...] mouth in the morning. 100 Tablet 11 Pen Syosset 32G X 4 MM Use to take insulin 5 times daily E11.9 500 Each 3 Tirzepatide 2.5 MG/0.5ML Subcutaneous Solution Auto-injector (Nilsunvivianero) inject 2.5mg under the skinonce a week 6 mL 2 Famotidine 20 MG Oral Tablet (Pepcid) Take 1 Tablet by mouth in the morning and 1 Tablet before bedtime. No current facility-administered medications for this visit. The patient's medication list was reviewed and updated as needed. Past Medical History: Diagnosis Date Breast cancer ([facility]) 1989 Reoccurance in 1995 Expressive aphasia 03/08/2023 Hypothyroidism Sleep apnea, obstructive Stroke ([facility]) 2000 Right side paraylsis Type 2 diabetes mellitus with hemoglobin A1c goal of less than 8.0% ([facility]) 01/25/2021 Wound, breast with complication 2007 Breast wound cleaned out Past Surgical History: Procedure Laterality Date BREAST BIOPSY Left 1995 CHEMOTHERAPY Left 1995 MASTECTOMY, PARTIAL Left 1989 MASTECTOMY, SIMPLE, COMPLETE Left 1995 NM BREAST SENTINAL NODE INJ OR Left 1989 4 nodes positive [place] ARTHRP ACETBLR/PROX FEM PROSTC AGRFT/ALGRFT Left RADIATION THERAPY Left 1995 REDUCTION OF BREAST Right 1995 Review of patient's allergies indicates: No Known Allergies Review of Systems Constitutional: Negative for appetite change, fatigue and unexpected weight change. Respiratory: Negative for cough, shortness of breath and wheezing. Cardiovascular: Negative for chest pain, palpitations and leg swelling. Gastrointestinal: Negative for abdominal pain, blood in stool, constipation, diarrhea, nausea and vomiting. Genitourinary: Negative for dysuria, frequency, hematuria and vaginal bleeding. Musculoskeletal: Positive for arthralgias, back pain and gait problem. Neurological: Positive for speech difficulty. Negative for dizziness, syncope and headaches. Psychiatric/Behavioral: Negative for confusion, decreased concentration and sleep disturbance. OBJECTIVE: BP 124/64 (BP Site: Right Arm, BP Position: Sitting, BP Cuff Size: Regular) | Pulse 81 | Temp 97.7 F (36.5 C) | Ht 5' 4.5" (1.638 m) | Wt 154 lb 1.6 oz (69.9 kg) | SpO2 92% | BMI 26.04 kg/m | BSA 1.78 m Physical Exam Vitals and nursing note reviewed. [...] No edema. Comments: Pain in sacral area Neurological: Mental Status: She is alert. Mental status is at baseline. Motor: No weakness. Gait: Gait abnormal. Psychiatric: Mood and Affect: Mood normal. Behavior: Behavior normal. Thought Content: Thought content normal. PLAN AND ASSESSMENT: Coccyx contusion, subsequent encounter (Primary) - Start Lidocaine 4 % External Patch (Aspercreme); Place 1 Patch over 12 hours topically on the skin daily. Continue Acetaminophen 500 mg three times a day as needed Encounter for long-term (current) use of medications - Premarin 0.625 MG/GM Vaginal Cream (Estrogens Conjugated); Administer into the vagina at bedtime.As directed. Type 2 diabetes mellitus with hemoglobin A1c goal of less than 8.0% ([facility]) - HEMOGLOBIN A1C; Future; Expected date: 05/13/2024 Continue Mounjaro, Empagliflozin, Metformin, Novolog, and Lantus Acquired hypothyroidism Continue levothyroxine Adjustment disorder with depressed mood Continue Bupropion ER Age-related osteoporosis without current pathological fracture Continue Prolia per Rheumatology MARVA on CPAP Hemiparesis affecting right side as late effect of stroke (HCC) Diabetes mellitus with nephropathy (HCC) Cerebr ovascular disease, unspecified Continue ASA Type 2 diabetes mellitus with stage 3b chronic kidney disease, with long-term current use of insulin (HCC) Mixed dyslipidemia Continue Atorvastatin and Ezetimibe Expressive aphasia HTN, goal below 140/90 Continue Lisinopril History of breast cancer Follow Up: Return in about 3 weeks (around 06/03/2024), or if symptoms worsen or fail to improve. Dixon Corbin DO 4:05 PM 05/13/2024 documented in this encounter Nursing Notes * Shira Hernandez CCMA - 05/13/2024 3:33 PM EST Chief Complaint Patient presents with Hospital Follow-Up Pt had a fall trying to get out of bed. Really hurt her tailbone - its not broken. Pt is taking 2 tylenol 500mg with no relief. documented in this encounter Plan of Treatment Upcoming Encounters Date Type Department Care Team (Late st Contact Info) Description 05/20/2024 1:00 PM EST Office Visit Family Practice [address] [place] [address], [place] [phone] Dixon Corbin, [address] [facility] [place] [address] 05/29/2024 2:20 PM EST Office Visit [facility]rology[facility] [address] [place], [place] [address] Reynaldo Alberts MD [address] [place] [address] 06/03/2024 3:10 PM EST Office Visit Family Practice [address] [place] [address] [address] [place] [phone] College, Pharmacist [address] [place] [address] 06/03/2024 3:40 PM EST Office Visit Family Practice [address] [place] [address] [address] [place] [phone] Dixon Corbin DO [address] [facility] [place] [address] 06/25/2024 1:30 PM EST Nutrition Services Nutrition Services 65 [facility] [address] [place] [address] Kassy Hernandez RDN [address] [facility] [place] [address] 08/26/2024 1:00 PM EDT Nurse Only Family Practice 65 [facility] [address] [place] [phone] Bette Kern RN [address] [facility] [place] [phone] 09/24/2024 11:40 AM EDT Office Visit Rheumatology [address] [place] [place] [address] Wesley Coates MD [facility] [place] [address] 10/08/2024 1:30 PM EDT Office Visit Sleep Disorders Ctr [facility] [address] [place] [phone] Toshia Castanon CRNP [address] [place] [address] 11/18/2024 2:00 PM EDT Office Visit Dermatology [facility] [address] [facility] [place] [address] River Foley MD [address] [place] [address] 12/27/2024 10:30 AM EDT Office Visit Cardiology, [facility] [address] [facility] [place] [address] Дмитрий Finley MD [address] [place] [address] Pending Results Name Type Priority Associated Diagnoses Date /Time HEMOGLOBIN A1C Lab Routine Type 2 diabetes mellitus with hemoglobin A1c goal of less than 8.0% (HCC) 05/13/2024 4:08 PM EST Scheduled Orders Name Type Priority Associated Diagnoses Orde r Schedule HEMOGLOBIN A1C Lab Routine Type 2 diabetes mellitus with hemoglobin A1c goal of less than 8.0% ([facility]) Expected: 05/13/2024 (Approximate), Expires: 05/13/2025 Health Maintenance Due Date Last Done Comments GFR 07/03/2024 01/01/2024, 09/10, 09/18/2023, Additional history exists HbA1c 07/27/2024 01/25/2024, 09/10, 06/07/2023, Additional history exists Adult Wellness Visit 08/20/2024 08/21/2023 Depression Screening 08/20/2024 08/21/2023 Diabetic Foot Exam 08/20/2024 08/21/2023, 0 08/15/2022, 10/26/2021 CKD PHOS USE SMARTSET [id number] 09/17/2024 04/0 01/2024, 08/09/2022, 11/09/2021 Diabetic Eye Exam 09/20/2024 09/21/2023, , 06/29/2023, Additional history exists Albumin/Creatinine Ratio 01/24/2025 024, 02/14/2023, 04/20/2022, Additional history exists CKD HGB USE SMARTSET [id number] 02/27/202502/27, 01/25/2024, 01/25/2024, Additional history exists TSH 03/25/2025 03/25/2024, 12/11, 09/26/2023, Additional history exists DXA Scan 09/18/2025 09/19/2023, 020 02/2022, 07/21/2021 DTap/Tdap Vaccines (2 - Td or Tdap) 02/08/2032 02/07/2022 Pneumococcal Vaccine: 65+ Years Completed 12/20/2016, 11/30/2015 Zoster Vaccines Completed 04/27/2019, 03/08/2018 VITAMIN D LEVEL ONCE IN A LIFETIME-USE SMARTSET# [id number] Completed 09/26/2023, 09/18/2023, 08/09/2022, Additional history exists [...] as of this encounter Visit Diagnoses Diagnosis Coccyx contusion, subsequent encounter- Primary Encounter for long-term (current) use of medications Encounter for long-term (current) use of other medications Type 2 diabetes mellitus with hemoglobin A1c goal of less than 8.0% (HCC) Acquired hypothyroidism Unspecified hypothyroidism Adjustment disorder with depressed mood Age-related osteoporosis without current pathological fracture Senile osteoporosis MARVA on CPAP Obstructive sleep apnea (adult) (pediatric) Hemiparesis affecting right side as late effect of stroke (HCC) Hemiplegia affecting unspecified side, late effect of cerebrovascular disease Diabetes mellitus with nephropathy (HCC) Type II or unspecified type diabetes mellitus with renal manifestations, not stated as uncontrolled Cerebrovascular disease, unspecified Type 2 diabetes mellitus with stage 3b chronic kidney disease, with long-term current use of insulin (HCC) Mixed dyslipidemia Mixed hyperlipidemia Expressive aphasia Aphasia HTN, goal below 140/90 Unspecified essential hypertension History of breast cancer Personal history of malignant neoplasm of breast documented in this encounter Care Teams Continuous Crusher Operator Relationship Specialty Start Date End Date Dixon Corbin DO [address] [facility] [place] [address] PCP - General Internal Medicine 12/21/23 documented as of this encounter
[2024-05-15 04:56] LABS: Basophils # (auto) 0.05 K/uL (0.00-0.20); Basophils % (auto) 0.4 %; Eosinophils # (auto) 0.02 K/uL (0.00-0.50); Eosinophils % (auto) 0.2 %; Hematocrit (blood only) 29.7 % (37.0-47.0); Hemoglobin 9.2 g/dl (12.0-16.0); Immature Granulocytes # (auto) 0.05 K/uL (0.01-0.20); Immature Granulocytes % (auto) 0.4 %; Lymphocytes # (auto) 1.08 K/uL (1.20-3.40); Mean Corpuscular Volume 90.5 fL (80.0-100.0); Monocytes # (auto) 1.06 K/uL (0.11-0.59); Monocytes % (auto) 8.8 %; Neutrophils # (auto) 9.76 K/uL (1.40-6.50); Neutrophils % (auto) 81.2 %; Platelet Count 290 K/uL (130-400); RDW Standard Deviation 52.8 fL (36.4-46.3); Red Blood Count 3.28 M/uL (4.20-5.40); White Blood Count 12.02 K/ul (4.8-10.8)
[2024-05-15 05:11] LABS: BUN Creatinine Ratio 17.6 (10-20); Calcium 8.7 mg/dl (8.6-10.3); Creatinine Clr Calc Pharmacy 45.3 ml/min; Potassium 4.2 mmol/L (3.5-5.1)
--- NOTE | 2024-05-15 07:24 | Orthopedic Progress Note ---
Date of Service May 15, 2024 Assessment & Plan (1) Closed intertrochanteric fracture of right hip: POD 1 from trochanteric nailing of right hip fx. Pain controlled. Blood pressure has improved from yesterday. PT/OT wbat teds, scd's, aspirin for dvt prophylaxis will discuss with Dr Yasir Navarro .78 year old patient POD 1 from trochanteric nailing of right hip fx. She was transferred to the ICU post op due to hypotension. Blood pressure has improved. Denies hip pain. Review of Systems All systems reviewed & are unremarkable except as noted in HPI & below. Physical Exam . alert, NAD VSS, hgb: 9.2 today Right leg: thigh tender, minimal swelling. Dressing clean, dry, intact. able to DF/PF, sensation intact, brisk refill Results & Data Results & Data Laboratory Results . Diagnostic Findings . PG Care Time/CCT Total # of Minutes Spent Total Time Spent with Patient: Total time spent is greater than 50% in coordination of care (as documented) at patient's floor/unit and/or counseling patient: Coding Level of Care Code 57607 Post Operative Follow-Up Diagnoses Closed intertrochanteric fracture of right hip S72.141A Encounter type: initial encounter Fracture alignment: displaced (1) Closed intertrochanteric fracture of right hip Encounter type: initial encounter Fracture alignment: displaced Qualified Code(s): S72.141A - Displaced intertrochanteric fracture of right femur, initial encounter for closed fracture
--- NOTE | 2024-05-15 07:25 | Hospitalist Progress Note ---
Date of Service May 15, 2024 Assessment & Plan (1) Hypotension: Plan Ms. Clark is a 78yoF with PMhx significant for valvular heart disease (mild MR, TR, TTE 2023), CVA, expressive aphasia and right hemiplegia, PVD status post stent, hypertension, hyperlipidemia, MARVA on CPAP, left breast cancer status post chemoradiation, melanoma as per records, DM 2 insulin requiring, hypothyroidism, mood disorder, osteoporosis presenting with concern for trauma after a fall at home. Patient with right hip fracture now s/p right intertrochanteric nail. #Post operative hypotension hold home BP medications Continue midodrine 10mg q 8 hours transfered to ICU, required brief pressor support downgrade to PCU ECHO with LVH, DDGI, and stable EF 55-60% PASP upper limit of normal #Right Intertrochanteric Fracture Traumatic right hip fracture Underlying osteoporosis Ambulatory dysfunction XRAY of the pelvis noting Right Intertrochanteric Fracture Orthopedics consult, anticipating repair on Pain control as needed PT/OT postop #Acute on chronic anemia, 2/2 post op losses preop 12.7, post op at 9.2 Tansfuse < 7 hgb repeat CBC in am Continue other home meds as ordered DVT prophylaxis: SCDs re: possible procedure preop Full code Dispo: per PT/OT recs once medically stable, anticipating discharge to rehab Admission and Anticipated Discharge Date Admission Date: May 13, 2024 Subjective Overnight: transfered to ICU 2/2 post op hypotension Slow improvement throughout morning, on midodrine and off pressors since 2am Reports notable pain with transfers but able to get to bedside chair. Physical Exam Constitutional: evaluated after transfer, noted pain 2/2 movement Respiratory: normal respiratory effort, lungs clear to auscultation Cardiovascular: tachycardic 2/2 pain Gastrointestinal (Abdomen): normal bowel sounds, soft, nontender, no hepatosplenomegaly Neurologic: right hemiplegia Results & Data Results & Data Vital Signs (Past 12 Hours) Vital Signs Temp Pulse Pulse Resp BP BP Pulse Ox 05/15/24 07:00 37.1 C 67 20 116/64 97 05/15/24 06:15 67 18 111/60 96 05/15/24 06:15 13 111/60 95 05/15/24 06:00 62 14 109/61 95 05/15/24 05:23 67 20 116/60 96 05/15/24 04:45 65 14 111/63 05/15/24 04:30 64 17 111/65 05/15/24 04:20 37.2 C 67 20 101/69 96 05/15/24 04:18 71 17 96 05/15/24 04:17 85/54 L 05/15/24 04:15 87/53 L 05/15/24 04:12 76 19 96 05/15/24 04:03 68 18 94 05/15/24 04:00 103/59 L 05/15/24 03:54 74 22 96 05/15/24 03:51 67 17 97 05/15/24 03:45 98/60 L 05/15/24 03:45 98/60 L 05/15/24 03:39 57 L 18 93 05/15/24 03:15 63 16 97/57 L 94 05/15/24 03:00 72 13 97/62 L 96 05/15/24 02:45 69 20 121/57 L 95 05/15/24 02:30 72 16 105/59 L 05/15/24 02:15 68 20 101/59 L 05/15/24 02:15 71 18 101/59 L 94 05/15/24 02:00 80 16 93/52 L 90 05/15/24 01:30 76 17 90 05/15/24 01:30 94/55 L 05/15/24 01:30 94/55 L 05/15/24 01:21 75 16 91 05/15/24 01:06 73 21 95 05/15/24 00:45 108/59 L 05/15/24 00:45 108/59 L 05/15/24 00:45 75 18 95 05/15/24 00:30 72 20 94 05/15/24 00:30 102/62 05/15/24 00:30 102/62 05/15/24 00:24 77 18 94 05/15/24 00:15 99/60 L 05/15/24 00:15 99/60 L 05/15/24 00:00 73 13 05/15/24 00:00 104/55 L 05/15/24 00:00 104/55 L 05/14/24 23:51 75 21 91 05/14/24 23:50 76 05/14/24 23:47 105/61 05/14/24 23:24 75 20 92 05/14/24 23:21 75 19 93 05/14/24 23:03 75 13 96 05/14/24 23:00 111/60 05/14/24 23:00 36.7 C 111/60 05/14/24 22:54 76 16 95 05/14/24 22:51 78 12 96 05/14/24 22:47 115/63 05/14/24 22:47 115/63 05/14/24 21:47 05/14/24 21:30 80 05/14/24 21:20 37.2 C 79 15 94/54 L 94 05/14/24 21:10 78 18 82/60 L 94 05/14/24 21:00 82 16 76/52 L 93 05/14/24 20:50 89 20 69/52 L 93 05/14/24 20:40 90 18 84/53 L 93 05/14/24 20:30 86 16 83/58 L 93 05/14/24 20:20 83 22 90/54 L 94 05/14/24 20:10 85 16 89/51 L 92 05/14/24 20:00 85 17 83/61 L 94 05/14/24 19:50 82 18 89/66 L 95 05/14/24 19:40 85 18 85/58 L 92 05/14/24 19:30 84 14 99/76 L 92 O2 Del Method O2 Flow Rate 05/15/24 07:00 Oxymask 2 05/15/24 06:15 05/15/24 06:15 05/15/24 06:00 05/15/24 05:23 Nasal Cannula 2 05/15/24 04:45 05/15/24 04:30 05/15/24 04:20 Nasal Cannula 2 05/15/24 04:18 05/15/24 04:17 05/15/24 04:15 05/15/24 04:12 05/15/24 04:03 05/15/24 04:00 05/15/24 03:54 05/15/24 03:51 05/15/24 03:45 05/15/24 03:45 05/15/24 03:39 05/15/24 03:15 05/15/24 03:00 05/15/24 02:45 05/15/24 02:30 05/15/24 02:15 05/15/24 02:15 05/15/24 02:00 05/15/24 01:30 Nasal Cannula 2 05/15/24 01:30 05/15/24 01:30 05/15/24 01:21 05/15/24 01:06 05/15/24 00:45 05/15/24 00:45 05/15/24 00:45 05/15/24 00:30 05/15/24 00:30 05/15/24 00:30 05/15/24 00:24 05/15/24 00:15 05/15/24 00:15 05/15/24 00:00 05/15/24 00:00 05/15/24 00:00 05/14/24 23:51 05/14/24 23:50 05/14/24 23:47 05/14/24 23:24 05/14/24 23:21 05/14/24 23:03 05/14/24 23:00 05/14/24 23:00 05/14/24 22:54 05/14/24 22:51 05/14/24 22:47 05/14/24 22:47 05/14/24 21:47 Nasal Cannula 2 05/14/24 21:30 05/14/24 21:20 Nasal Cannula 2 05/14/24 21:10 Nasal Cannula 2 05/14/24 21:00 Nasal Cannula 2 05/14/24 20:50 Nasal Cannula 2 05/14/24 20:40 Nasal Cannula 2 05/14/24 20:30 Nasal Cannula 2 05/14/24 20:20 Nasal Cannula 2 05/14/24 20:10 Nasal Cannula 2 05/14/24 20:00 Nasal Cannula 2 05/14/24 19:50 Nasal Cannula 2 05/14/24 19:40 Nasal Cannula 2 05/14/24 19:30 Nasal Cannula 2
[2024-05-15] MEDS ORDERED: Nursing to Pharmacy Communication SCH (07:30)
[2024-05-15] MEDS ORDERED: MIDODRINE HCL 2.5 MG TAB PO SCH (08:00)
--- NOTE | 2024-05-15 08:08 | Fluoroscopy Report ---
FL hip RT 2-3V CLINICAL HISTORY: RIGHT TROCH NAIL COMPARISON STUDY: Pelvis and right hip radiographs May 13, 2024. FLUOROSCOPY TIME: 116 seconds. Ka,r: 15.82 mGy FLUOROSCOPIC IMAGES: 4 FINDINGS: Fluoroscopy was provided during open reduction and internal fixation of the intertrochanter ic fracture of the right femur with trochanteric nail. Fracture alignment appears anatomic. Hardware is intact. IMPRESSION: Fluoroscopy provided during open reduction and internal fixation of the intertrochanteri c fracture of the right femur. ACT 112: Negative or not required by law. Electronically signed by: Emre Wynne M.D. 05/15/2024 8:07 AM
[2024-05-15] MEDS: INSULIN ASPART PER UNIT CHARGE SC SCH (08:40)
[2024-05-15] MEDS: MIDODRINE HCL 10 MG TAB PO SCH (08:44)
[2024-05-15] MEDS ORDERED: lisinopril 10 MG TAB PO SCH (09:00)
[2024-05-15] MEDS ORDERED: NON-FORMULARY MEDICATION (Insulin Glargine [Lantus Solostar U-100 Insulin] 100 unit/mL (3 SQ SCH (09:00)
[2024-05-15] MEDS ORDERED: EMPAGLIFLOZIN 25 MG TAB PO SCH (09:00)
--- NOTE | 2024-05-15 09:53 | Electrocardiogram Report ---
Test Reason : Blood Pressure : */* mmHG Vent. Rate : 76 BPM Atrial Rate : 76 BPM P-R Int : 170 ms QRS Dur : 104 ms QT Int : 444 ms P-R-T Axes : 74 -12 60 degrees QTcB Int : 499 ms Sinus rhythm with Premature supraventricular complexes Anteroseptal infarct (cited on or before 06-May-2024) Abnormal ECG When compared with ECG of 13-May-2024 22:27, Premature supraventricular complexes are now Present Questionable change in initial forces of Anterior leads Confirmed by Yung Bedoya ([id number]) on 05/15/2024 9:53:02 AM Referred By: REFERRED SELF Confirmed By: Yung Bedoya
[2024-05-15] MEDS: ACETAMINOPHEN 500 MG TAB PO PRN (10:53)
[2024-05-15] MEDS: ACETAMINOPHEN 1,000 MG/100 ML VIAL IV STA (13:35)
[2024-05-15] MEDS: TIRZEPATIDE 2.5 MG/0.5 ML SC SCH (20:51)
[2024-05-16] MEDS: MELATONIN 3 MG TAB PO PRN (01:06)
[2024-05-16] MEDS: KETOROLAC TROMETHAMINE 15 MG/ML VIAL IV ONE (07:59)
[2024-05-16] MEDS: ACETAMINOPHEN 1,000 MG/100 ML VIAL IV SCH (08:02)
--- NOTE | 2024-05-16 08:11 | Orthopedic Progress Note ---
Date of Service May 16, 2024 Assessment & Plan (1) Closed intertrochanteric fracture of right hip: Plan: 78-year-old female with multiple medical comorbidities now postop day 2 from IM nailing of right inotrope fracture. She is doing okay. Having some pain which is not unexpected. Dressings are clean dry and intact. No major swelling. She is neurologically stable. Plan: 1. DVT prophylaxis. Would recommend continuing thigh-high teds, SCDs, and a b darci aspirin twice a day for the next 6 weeks. 2. PT/OT. She can fully weight-bear as tolerated on this right leg. 3. Pain control. Doing okay with current pain regimen. 4. Medical management as per the medicine service. 5. Disposition. She is orthopedically okay for discharge anytime medically stable. I need to see her back 2 to 3 weeks out from surgery date. Any orthopedic questions can be directly [phone]. Admission and Anticipated Discharge Date Admission Date: May 13, 2024 Subjective 78-year-old female now postop day 2 from IM nailing of a right inner troches fracture. She is doing okay. Still having some pain. No real new complaints. Physical Exam Physical Exam: Physical exam shows a pleasant elderly female. She is lying in bed. Looks gordon sonably comfortable this morning. Examination of the right leg reveals the dressing to be clean dry and intact. Leg lengths are equal. Thigh is soft and supple. She is neurologically intact. She does have some chronic weakness on the side from her previous stroke. Results & Data Vital Signs (Past 12 Hours) Vital Signs Temp Pulse Pulse Resp BP BP BP 05/16/24 07:01 36.8 C 88 19 71/35 L 05/16/24 07:00 85 05/16/24 05:28 84 05/16/24 04:54 36.7 C 86 18 97/60 L 05/16/24 04:43 84 20 95/61 L 05/16/24 04:00 36.4 C L 83 20 119/66 05/16/24 01:00 05/16/24 00:06 86 22 119/68 05/15/24 23:00 89 05/15/24 22:00 88 18 116/68 Pulse Ox Pulse Ox O2 Del Method O2 Del Method O2 Flow Rate O2 Flow Rate 05/16/24 07:01 90 Nasal Cannula 05/16/24 07:00 05/16/24 05:28 05/16/24 04:54 96 Nasal Cannula 2 05/16/24 04:43 96 Nasal Cannula 2 05/16/24 04:00 95 Nasal Cannula 2 05/16/24 01:00 96 Nasal Cannula 2 05/16/24 00:06 95 Nasal Cannula 2 05/15/24 23:00 05/15/24 22:00 92 Nasal Cannula 2 (1) Closed intertrochanteric fracture of right hip Encounter type: initial encounter Fracture alignment: displaced Qualified Code(s): S72.141A - Displaced intertrochanteric fracture of right femur, initial encounter for closed fracture
[2024-05-16 08:40] LABS: Hematocrit (blood only) 31.9 % (37.0-47.0); Hemoglobin 10.1 g/dl (12.0-16.0); Mean Corpuscular Hemoglobin 28.3 pg (25.0-34.0); Mean Corpuscular Hgb Conc 31.7 g/dL (32.0-36.0); Mean Corpuscular Volume 89.4 fL (80.0-100.0); Mean Platelet Volume 10.1 fL (9.4-12.4); Platelet Count 302 K/uL (130-400); Red Blood Count 3.57 M/uL (4.20-5.40); White Blood Count 12.73 K/ul (4.8-10.8)
[2024-05-16] MEDS: cefTRIAXone SODIUM 2,000 MG/50 ML BAG IV SCH (10:23)
[2024-05-16] MEDS: MIDODRINE HCL 10 MG TAB PO SCH (11:52)
[2024-05-16] MEDS ORDERED: MIDODRINE HCL 2.5 MG TAB PO SCH (12:00)
--- NOTE | 2024-05-16 13:12 | Hospitalist Progress Note ---
Date of Service May 16, 2024 Assessment & Plan (1) Hypotension: Plan Ms. Clark is a 78yoF with PMhx significant for valvular heart disease (mild MR, TR, TTE 2023), CVA, expressive aphasia and right hemiplegia, PVD status post stent, hypertension, hyperlipidemia, MARVA on CPAP, left breast cancer status post chemoradiation, melanoma as per records, DM 2 insulin requiring, hypothyroidism, mood disorder, osteoporosis presenting with concern for trauma after a fall at home. Patient with right hip fracture now s/p right intertrochanteric nail. Patient with persistent hypotension likely due to known left subclavian stenosis. Will assess BP from other limb as patient is asymptomatic Patient with small ulceration on left breast, given no arrhythmia and known etiology of BP will downgrade If all remains stable in next 24 hours, patient will be stable for discharge. #Wound on surgical incision of left breast reports complex history of poor healing to prior mastectomy from breast cancer--reporting history of hyperbaric oxygen therapy and debridement Wound appears superficial, but concerned Wound care consult with hope to establish as OP #Post operative hypotension #Left subclavian stenosis secondary to radiation therapy status post percutaneous intervention Continue midodrine 10mg q 8 hours Will assess blood pressures in other limbs ECHO with LVH, DDGI, and stable EF 55-60% PASP upper limit of normal gary [facility] #Right Intertrochanteric Fracture Traumatic right hip fracture Underlying osteoporosis Ambulatory dysfunction XRAY of the pelvis noting Right Intertrochanteric Fracture Orthopedics consult, anticipating repair on 05/14.24 Pain control as needed PT/OT postop #Acute on chronic anemia, 2/2 post op losses preop 12.7, post op at 9.2 Tansfuse < 7 hgb repeat CBC in am Continue other home meds as ordered DVT prophylaxis: SCDs Full code Dispo: per PT/OT recs once medically stable, anticipating discharge to rehab I spent a total of 60 minutes coordinating, documenting, and providing care for this patient excluding time spent in the performance of separately billed services. All of the aforementioned completed while collaborating with the assigned attending physician for a full treatment plan. Please see their addendum for further details. Admission and Anticipated Discharge Date Admission Date: May 13, 2024 Subjective NAEO Reports pain mostly on coccyx, with some pain in hip Denies any other concerns and son at bedside and reports patient is at baseline overall outside of pain Physical Exam Constitutional: expressive aphasia, but very interactive Respiratory: normal respiratory effort, lungs clear to auscultation Cardiovascular: RRR, no murmur, no edema Gastrointestinal (Abdomen): normal bowel sounds, soft, nontender, no hepatosplenomegaly Skin: small ulceration on tip of surgical incision on left breast Results & Data Results & Data Vital Signs (Past 12 Hours) Vital Signs Temp Pulse Pulse Resp BP BP BP 05/16/24 10:46 36.6 C 76 17 85/49 L 05/16/24 08:00 95/46 L 05/16/24 08:00 05/16/24 07:01 36.8 C 88 19 71/35 L 05/16/24 07:00 85 05/16/24 05:28 84 05/16/24 04:54 36.7 C 86 18 97/60 L 05/16/24 04:43 84 20 95/61 L 05/16/24 04:00 36.4 C L 83 20 119/66 Pulse Ox O2 Del Method O2 Flow Rate 05/16/24 10:46 96 Room Air 05/16/24 08:00 05/16/24 08:00 Nasal Cannula 2 05/16/24 07:01 90 Nasal Cannula 05/16/24 07:00 05/16/24 05:28 05/16/24 04:54 96 Nasal Cannula 2 05/16/24 04:43 96 Nasal Cannula 2 05/16/24 04:00 95 Nasal Cannula 2 Laboratory Results Short CBC 05/16/24 Range/Units 08:02 WBC 12.73 H (4.8-10.8) K/ul Hgb 10.1 L (12.0-16.0) g/dl Hct 31.9 L (37.0-47.0) % Plt Count 302 (130-400) K/uL Medications Administered Home Medications Medication Instructions Recorded Confirmed Last Taken CPAP Machine 06/26/23 05/14/24 Unknown aspirin 81 mg tablet 81 mg PO DAILY 06/26/23 05/14/24 05/13/24 atorvastatin 80 mg tablet 80 mg PO DAILY 06/26/23 05/14/24 05/13/24 blood sugar diagnostic (OneTouch 06/26/23 05/14/24 Unknown Verio test strips) bupropion HCl 150 mg 24 hr tablet, 150 mg PO QAM 06/26/23 05/14/24 05/13/24 extended release cholecalciferol (vitamin D3) 125 125 mcg PO DAILY 06/26/23 05/14/24 05/13/24 mcg (5,000 unit) capsule cyanocobalamin (vitamin B-12) 1,000 mcg sublingual DAILY 06/26/23 05/14/24 05/13/24 1,000 mcg sublingual tablet denosumab 60 mg/mL subcutaneous 60 mg subcut 06/26/23 06/26/23 Unknown syringe (Prolia) empagliflozin 25 mg tablet 25 mg PO DAILY 06/26/23 05/14/24 05/13/24 ezetimibe 10 mg tablet 10 mg PO DAILY 06/26/23 05/14/24 05/13/24 famotidine 20 mg tablet 20 mg PO DAILY 06/26/23 05/14/24 05/13/24 insulin aspart U-100 100 unit/mL 35 unit subcut TID 06/26/23 05/14/24 05/13/24 (3 mL) subcutaneous pen (Novolog FlexPen U-100 Insulin aspart) insulin needles (disposable) 30 X 06/26/23 05/14/24 Unknown 3/4" levothyroxine 75 mcg capsule 100 mcg PO DAILY 06/26/23 05/14/24 05/13/24 lisinopril 10 mg tablet 10 mg PO DAILY 06/26/23 05/14/24 05/13/24 sertraline 100 mg tablet 100 mg PO DAILY 06/26/23 05/14/24 05/13/24 sertraline 50 mg tablet 50 mg PO DAILY 06/26/23 05/14/24 05/13/24 Premarin 0.625 mg vaginal BID 05/14/24 05/14/24 Unknown calcium carbonate 750 mg PO BID 05/14/24 05/14/24 05/13/24 insulin aspart U-100 100 unit/mL subcut 05/14/24 05/13/24 (3 mL) subcutaneous pen (Novolog FlexPen U-100 Insulin aspart) insulin glargine 100 unit/mL (3 56 unit subcut DAILY 05/14/24 05/14/24 05/13/24 mL) subcutaneous pen (Lantus Solostar U-100 Insulin) lidocaine 4 % topical patch 1 patch topical Q12H pain 05/14/24 05/14/24 05/13/24 (Aspercreme (lidocaine)) metformin 500 mg tablet,extended 500 mg PO BID 05/14/24 05/14/24 05/13/24 release 24 hr tirzepatide 2.5 mg/0.5 mL 5 mg subcut WK 05/14/24 05/14/24 Unknown subcutaneous pen injector (Arianne) Active Medications Generic Name Dose Route Start Last Admin Trade Name Humberto PRN Reason Stop Dose Admin Aspirin 81 mg 05/14/24 09:00 05/16/24 08:05 Aspirin 81 Mg Ectab PO 06/13/24 08:59 81 mg DAILY LOIDA Administration Atorvastatin Calcium 80 mg 05/14/24 09:00 05/16/24 08:04 Atorvastatin 40 Mg Tab PO 06/13/24 08:59 80 mg DAILY LOIDA Administration Bupropion HCl 150 mg 05/14/24 09:00 05/16/24 08:05 Bupropion Xl 150 Mg Tabcr PO 06/13/24 08:59 150 mg QAM LOIDA Administration Calcium Carbonate 750 mg 05/14/24 09:00 05/16/24 08:17 Calcium Carbonate 500 Mg Chewable Tab PO 06/13/24 08:59 750 mg BID LOIDA Administration Cyanocobalamin 1,000 mcg 05/14/24 09:00 05/16/24 08:04 Cyanocobalamin (B-12) 500 Mcg Tablet PO 06/13/24 08:59 1,000 mcg DAILY LOIDA Administration Ezetimibe 10 mg 05/14/24 09:00 05/16/24 08:05 Ezetimibe 10 Mg Tab PO 06/13/24 08:59 10 mg DAILY LOIDA Administration Famotidine 20 mg 05/14/24 09:00 05/16/24 08:05 Famotidine 20 Mg Tab PO 06/13/24 08:59 20 mg DAILY LOIDA Administration Albumin Human 25 gm in 100 mls @ 50 mls/hr 05/14/24 04:45 05/15/24 05:20 Albumin 25% IV 05/17/24 04:44 Not Given Q8H LOIDA Acetaminophen 1,000 mg in 100 mls @ 400 mls/hr 05/16/24 08:00 05/16/24 08:19 Ofirmev IV 05/19/24 07:59 Infused Q8H LOIDA Infusion Ceftriaxone Sodium 2,000 mg in 50 mls @ 100 mls/hr 05/16/24 09:45 05/16/24 11:07 Rocephin IV 05/21/24 09:44 Infused Q24H LOIDA Infusion Insulin Aspart 0 units 05/15/24 07:30 05/16/24 12:52 Insulin Aspart Per Unit Charge SC 06/14/24 07:29 9 units ACHS LOIDA Administration Insulin Glargine 5 units 05/14/24 01:20 05/15/24 20:50 Lantus Per Unit Charge SQ 06/13/24 01:19 5 units HS LOIDA Administration Levothyroxine Sodium 100 mcg 05/14/24 06:30 05/16/24 06:04 Levothyroxine Sodium 100 Mcg Tablet PO 06/13/24 06:29 100 mcg DAILYBB LOIDA Administration Lidocaine 1 patch 05/14/24 09:00 05/16/24 08:05 Lidocaine 5% 1 Patch TD 06/13/24 08:59 1 patch DAILY LOIDA Administration Melatonin 3 mg 05/16/24 00:43 05/16/24 01:06 Melatonin 3 Mg Tab PO 06/15/24 00:42 3 mg HS PRN Administration Sleep Midodrine 10 mg 05/16/24 12:00 05/16/24 11:52 Midodrine Hcl 10 Mg Tab PO 06/15/24 11:59 Not Given TID@0800,1200,1700 LOIDA Miscellaneous 1 each 05/14/24 21:00 05/15/24 20:52 Remove Lidoderm Patch N/A 06/13/24 20:59 1 each DAILY@2100 LOIDA Administration Morphine Sulfate 2 mg 05/14/24 00:32 05/14/24 10:02 Morphine Sulfate 2 Mg/Ml Carp IV 05/28/24 00:31 2 mg Q3H PRN Administration Pain Tirezpatide 2.5 Mg/0 1 each 05/15/24 21:00 05/15/24 20:51 .5 Ml-(Non-Formulary SC 06/14/24 20:59 2.5 mg Patient's Own Med) We LOIDA Administration Oxycodone HCl 5 - 10 mg 05/14/24 06:29 05/16/24 12:20 Oxycodone Hcl Ir 5 Mg Tab (Immediate Release) PO 05/28/24 06:28 10 mg QID PRN Administration Pain Sertraline HCl 50 mg 05/14/24 09:00 05/16/24 08:05 Sertraline Hcl 50 Mg Tablet PO 06/13/24 08:59 50 mg DAILY LOIDA Administration Sertraline HCl 100 mg 05/14/24 09:00 05/16/24 08:05 Sertraline Hcl 100 Mg Tablet PO 06/13/24 08:59 100 mg DAILY LOIDA Administration Vitamin D 125 mcg 05/14/24 09:00 05/16/24 08:05 Cholecalciferol 125 Mcg (5,000 Units) Tab PO 06/13/24 08:59 125 mcg DAILY LOIDA Administration
[2024-05-17 08:01] LABS: Hematocrit (blood only) 33.1 % (37.0-47.0); Hemoglobin 10.5 g/dl (12.0-16.0); Mean Corpuscular Hemoglobin 28.5 pg (25.0-34.0); Mean Corpuscular Hgb Conc 31.7 g/dL (32.0-36.0); Mean Corpuscular Volume 89.9 fL (80.0-100.0); Platelet Count 325 K/uL (130-400); RDW Standard Deviation 52.7 fL (36.4-46.3); Red Blood Count 3.68 M/uL (4.20-5.40); White Blood Count 9.66 K/ul (4.8-10.8)
--- NOTE | 2024-05-17 11:26 | Orthopedic Progress Note ---
Date of Service May 17, 2024 Assessment & Plan (1) Closed intertrochanteric fracture of right hip: POD 3 from trochanteric nailing for right hip fx. Hip seems to be doing okay. She is having some knee and foot pain, may have some mild arthritis that is symptomatic. Continue PT/OT, wbat. She said she might be discharged to rehab today. Follow up with orthopedics in 2-3 weeks. Dressing change today. Dvt prophylaxis: teds, scd's and aspirin. Subjective .78 year old patient POD 3 from right trochanteric nailing. Sitting in the chair. Complaining mostly of knee and foot pain. Review of Systems All systems reviewed & are unremarkable except as noted in HPI & below. Physical Exam . alert, NAD Right leg: dressings intact. Tender around the medial knee, able to extend her knee but is painful. No swelling in her knee or foot. Able to dorsiflex and plantarflex. Results & Data Results & Data Laboratory Results . Diagnostic Findings . PG Care Time/CCT Total # of Minutes Spent Total Time Spent with Patient: Total time spent is greater than 50% in coordination of care (as documented) at patient's floor/unit and/or counseling patient: Coding Level of Care Code 56742 Post Operative Follow-Up Diagnoses Closed intertrochanteric fracture of right hip S72.141A Encounter type: initial encounter Fracture alignment: displaced (1) Closed intertrochanteric fracture of right hip Encounter type: initial encounter Fracture alignment: displaced Qualified Code(s): S72.141A - Displaced intertrochanteric fracture of right femur, initial encounter for closed fracture
--- NOTE | 2024-05-17 12:47 | Discharge Summary ---
Discharge Summary Date of Service May 17, 2024 Principal Dx & Hospital Course #1 = Principal Diagnosis (1) Hypotension: Plan Ms. Clark is a 78yoF with PMhx significant for valvular heart disease (mild MR, TR, TTE 2023), CVA, expressive aphasia and right hemiplegia, PVD status post stent, hypertension, hyperlipidemia, MARVA on CPAP, left breast cancer status post chemoradiation, melanoma as per records, DM 2 insulin requiring, hypothyroidism, mood disorder, osteoporosis presenting with concern for trauma after a fall at home. Patient with right hip fracture now s/p right intertrochanteric nail. Patient with persistent hypotension likely due to known left subclavian stenosis. BP is much improved with her pressure being assessed on RUE Patient doing well postoperatively. Patient requires acute rehab due to her hemiplegia, the fracture being on her affected side, her ongoing expressive aphasia requiring speech therapy services ongoing. She also requiring close pain management, especially given her inability to communicate clearly at times. On day of discharge, she denied any new concerns. #Wound on surgical incision of left breast reports complex history of poor healing to prior mastectomy from breast cancer--reporting history of hyperbaric oxygen therapy and debridement Wound appears superficial, but concerned recommend close follow up #Post operative hypotension #Left subclavian stenosis secondary to radiation therapy status post percutaneous intervention Continue midodrine 10mg q 8 hours Will assess blood pressures in other limbs ECHO with LVH, DDGI, and stable EF 55-60% PASP upper limit of normal gary larsen #Right Intertrochanteric Fracture Traumatic right hip fracture Underlying osteoporosis Ambulatory dysfunction XRAY of the pelvis noting Right Intertrochanteric Fracture Orthopedics consult, anticipating repair on 05/14.24 Pain control as needed rehab #Acute on chronic anemia, 2/2 post op losses preop 12.7, post op at 9.2 Tansfuse < 7 hgb stable Continue other home meds as ordered Notes For Next Care Provider Medication Changes From Visit none Admission HPI Per Admitting Provider History obtained from patient, family, and records. Medical history significant for valvular heart disease (mild MR, TR, TTE 2023), CVA, expressive aphasia, PVD status post stent, hypertension, hyperlipidemia, MARVA on CPAP, left breast cancer status post chemoradiation, melanoma as per records, DM 2 insulin requiring, hypothyroidism, mood disorder, osteoporosis Recent ER visit last week for sacral pain following fall at home after sliding off the bed.. Patient evaluated at the ER. Coccygeal contusion on exam. Hypotension noted at the ER. Keflex Rx prescribed for possible UTI. Increased pain on ambulation since discharge from the hospital. Patient started on Lidoderm patch by PCP on follow-up visit today. Patient had a fall at her kitchen tonight, no head trauma or LOC. Patient denies chest pain, SOB. Right leg noted to be abnormal as per . Physician neighbor summoned to patient's home. EMS subsequently called. SBP 90s upon arrival at the ER. Medical History as above Surgical History :Breast biopsy, right breast reduction, left mastectomy, hip surgeries Family History : COPD, heart disease, leukemia, melanoma Personal/Social history : Non-smoker, occasional EtOH intake, retired manager part Admission Exam Per Admitting Provider GENERAL: uncomfortable, dysarthric, pleasant, no respiratory distress SKIN: Normal color, warm HEENT: [place] palpebral conjunctivae, no ptosis, dry buccal mucosa NECK : Supple, no tenderness CHEST : CTA, no tenderness HEART : RRR, no obvious murmurs ABDOMEN: Some distention, nontender EXTREMITIES : Right hip tenderness, no other conspicuous deformities noted NEUROLOGIC : Coherent, no facial asymmetry, chronic dysarthria, chronic right hemiparesis, gait and stance not assessed Discharge Exam Constitutional WD/WN, vitals as above Respiratory normal respiratory effort, lungs clear to auscultation Cardiovascular RRR, no murmur, no edema Gastrointestinal (Abdomen) normal bowel sounds, soft, nontender, no hepatosplenomegaly Neurologic expressive aphasia, pleasant right wrist contracture, right hemiplgia Updated Medication List Medication Instructions Recorded Confirmed Type CPAP Machine 06/26/23 05/14/24 History aspirin 81 mg tablet 81 mg PO DAILY 06/26/23 05/14/24 History atorvastatin 80 mg tablet 80 mg PO DAILY 06/26/23 05/14/24 History blood sugar diagnostic (OneTouch 06/26/23 05/14/24 History Verio test strips) bupropion HCl 150 mg 24 hr tablet, 150 mg PO QAM 06/26/23 05/14/24 History extended release cholecalciferol (vitamin D3) 125 125 mcg PO DAILY 06/26/23 05/14/24 History mcg (5,000 unit) capsule cyanocobalamin (vitamin B-12) 1,000 mcg sublingual DAILY 06/26/23 05/14/24 History 1,000 mcg sublingual tablet denosumab 60 mg/mL subcutaneous 60 mg subcut 06/26/23 06/26/23 History syringe (Prolia) empagliflozin 25 mg tablet 25 mg PO DAILY 06/26/23 05/14/24 History ezetimibe 10 mg tablet 10 mg PO DAILY 06/26/23 05/14/24 History famotidine 20 mg tablet 20 mg PO DAILY 06/26/23 05/14/24 History insulin aspart U-100 100 unit/mL 35 unit subcut TID 06/26/23 05/14/24 History (3 mL) subcutaneous pen (Novolog FlexPen U-100 Insulin aspart) insulin needles (disposable) 30 X 06/26/23 05/14/24 History 3/4" levothyroxine 75 mcg capsule 100 mcg PO DAILY 06/26/23 05/14/24 History lisinopril 10 mg tablet 10 mg PO DAILY 06/26/23 05/14/24 History sertraline 100 mg tablet 100 mg PO DAILY 06/26/23 05/14/24 History sertraline 50 mg tablet 50 mg PO DAILY 06/26/23 05/14/24 History Premarin 0.625 mg vaginal BID 05/14/24 05/14/24 History calcium carbonate 750 mg PO BID 05/14/24 05/14/24 History insulin aspart U-100 100 unit/mL subcut 05/14/24 History (3 mL) subcutaneous pen (Novolog FlexPen U-100 Insulin aspart) insulin glargine 100 unit/mL (3 56 unit subcut DAILY 05/14/24 05/14/24 History mL) subcutaneous pen (Lantus Solostar U-100 Insulin) lidocaine 4 % topical patch 1 patch topical Q12H pain 05/14/24 05/14/24 History (Aspercreme (lidocaine)) metformin 500 mg tablet,extended 500 mg PO BID 05/14/24 05/14/24 History release 24 hr tirzepatide 2.5 mg/0.5 mL 5 mg subcut WK 05/14/24 05/14/24 History subcutaneous pen injector (Arianne) Hospital Stay Data Consultations 05/13/24 23:02 ED Decision to Admit Stat 05/14/24 04:29 Consult Orthopedic Surgery Routine 05/14/24 21:30 Consult Production Operations Engineer Routine Procedures Performed Operation Date: 05/14/24 15:40 Actual Procedures p Right Long Troch Nail(Right) - Zac Cooley MD Diagnostic Imagining Performed 05/14/24 [place] hip RT 2-3V Routine Total Time Total Time Spent Total Time Spent (In Minutes): 45
== END 2024-05-17 15:15 | DRG 481 ==
LOC: ED 22:05 → 2W 23:53 → SUATTDRO 23:53 → 2W 05-14 00:50 → 1E 05-14 21:26 → 4W 05-16 05:00